=== PATIENT | female | born 1995 | race Caucasian/White ===

== ENCOUNTER → 2017-08-23 | Outpatient (CLI) | payer BC, OTHER ==
[~2017-08-23] MED LIST: GLYBURIDE PO; IBUP800 PO; IRON150C PO; ORAL BIRTH CONTROL; Percocet 5-3251 EACH PO; Prilosec Otc20 MG PO; Verotin-Gr Cap1 EACH PO
[2017-08-24 09:07] LABS: Candida species (DNA Probe) Negative (NEGATIVE); G. vaginalis (DNA Probe) Negative (NEGATIVE); T. vaginalis (DNA Probe) Negative (NEGATIVE)
== END ==
LOC: LAB 16:56
PROVIDERS: Obstetrics & Gynecology
DX: A59.9 Trichomoniasis, unspecified (principal)
CPT/HCPCS: 87480; 87510; 87660

== ENCOUNTER 2017-08-28 04:16 | Emergency (ER) | payer BC, OTHER ==
[~2017-08-28] VITALS: Ht 162.6 cm; Wt 130.2 kg
[~2017-08-28 04:16] MED LIST changes: -GLYBURIDE PO; -IBUP800 PO; -IRON150C PO; -ORAL BIRTH CONTROL; -Percocet 5-3251 EACH PO
[2017-08-28] MEDS ORDERED: GLYBURIDE PO (04:44)
[2017-08-28] MEDS ORDERED: IRON150C PO (04:45)
[2017-08-28 05:00] LABS: Source, Urine Clean Catch
[2017-08-28 05:28] LABS: Influenza A Negative (NEGATIVE); Influenza B Negative (NEGATIVE)
[2017-08-28 05:29] LABS: Appearance, Urine Hazy (Clear); Bilirubin, Urine Neg (Neg); Blood, Urine 1+ (Neg); Color, Urine Yellow (P-Yellow); Glucose Qualitative, Urine Neg (Neg); Ketones, Urine Neg (Neg); Leukocyte Esterase, Urine 1+ (Neg); Nitrite, Urine Neg (Neg); Protein, Urine Neg (Neg); Specific Gravity, Urine 1.015 (1.003-1.022); Urobilinogen, Urine NORM (Normal)
[2017-08-28 05:30] LABS: Bacteria Many /hpf; Red Blood Cells, Urine 0-2 /hpf (0-2); Squamous Epithelial Cells Many /hpf (Few); White Blood Cells, Urine 0-2 /hpf (0-5)
== END 2017-08-28 05:05 | disposition home or self-care (01) ==
LOC: ER 04:16
PROVIDERS: Emergency Medicine
DX: J06.9 Acute upper respiratory infection, unspecified (principal); J45.909 Unspecified asthma, uncomplicated; Z88.0 Allergy status to penicillin; Z88.8 Allergy status to other drugs, medicaments and biological substances; Z79.899 Other long term (current) drug therapy
CPT/HCPCS: 81001; 87804; 99283

== ENCOUNTER → 2017-09-07 | Outpatient (CLI) | payer BC, OTHER ==
[~2017-09-07] MED LIST changes: +GLYBURIDE PO; +IBUP800 PO; +IRON150C PO; +ORAL BIRTH CONTROL; +Percocet 5-3251 EACH PO
== END | disposition home or self-care (01) ==
LOC: LAB 15:19
DX: R30.0 Dysuria (principal)
CPT/HCPCS: 87086

== ENCOUNTER → 2017-09-20 | Outpatient (CLI) | payer BC, OTHER | END | disposition home or self-care (01) | LOC: LAB 16:36 | DX: Z34.03 Encounter for supervision of normal first pregnancy, third trimester (principal); Z3A.35 35 weeks gestation of pregnancy | CPT/HCPCS: 87081; 87653 ==

== ENCOUNTER 2017-10-18 05:58 | Inpatient (IN) | payer BC, OTHER ==
[~2017-10-18] VITALS: Ht 162.6 cm; Wt 131.0 kg
[~2017-10-18 05:58] MED LIST changes: -IBUP800 PO; -ORAL BIRTH CONTROL; -Percocet 5-3251 EACH PO
[2017-10-18 06:33] LABS: BASOPHILS ABSOLUTE AUTO 0.04 K/mm3 (0.00-0.23); BASOPHILS PERCENT AUTO 0 % (0-2); EOSINOPHILS ABSOLUTE AUTO 0.13 K/mm3 (0.00-0.68); EOSINOPHILS PERCENT AUTO 1 % (0-6); Hematocrit 37.6 % (33.0-51.0); Hemoglobin 12.2 g/dL (11.5-16.0); IMMATURE GRAN ABSOLUTE AUTO 0.11 K/mm3 (0.00-0.10); IMMATURE GRAN PERCENT AUTO 1 % (0-1); LYMPHOCYTES ABSOLUTE AUTO 3.89 K/mm3 (0.84-5.20); LYMPHOCYTES PERCENT AUTO 36 % (21-46); MONOCYTES ABSOLUTE AUTO 0.73 K/mm3 (0.16-1.47); MONOCYTES PERCENT AUTO 7 % (4-13); Mean Corpuscular HGB 26.5 pg (26.0-34.0); Mean Corpuscular HGB Conc 32.4 g/dL (31.5-36.5); Mean Corpuscular Volume 82 fL (80-100); Mean Platelet Volume 11.4 fL (9.1-12.4); NEUTROPHILS ABSOLUTE AUTO 5.83 K/mm3 (1.96-9.15); NEUTROPHILS PERCENT AUTO 54 % (41-73); Platelet Count 287 K/mm3 (150-400); RDW Coefficient Variation 14.7 % (11.7-14.2); RDW Standard Deviation 43.3 fL (35.1-46.3); White Blood Cell Count 10.73 K/mm3 (4.00-11.30)
[2017-10-19 14:34] LABS: PCO2 Cord - Arterial 60.9 mmHg (40-50); pH Cord - Arterial 7.25 (7.28-7.35)
[2017-10-19 14:35] LABS: PCO2 Cord - Venous 49.3 mmHg (40-50); PO2 Cord - Venous 17.4 mmHg (28-32)
[2017-10-20 05:59] LABS: Hematocrit 29.3 % (33.0-51.0); Hemoglobin 9.6 g/dL (11.5-16.0); Mean Corpuscular HGB 27.2 pg (26.0-34.0); Mean Corpuscular HGB Conc 32.8 g/dL (31.5-36.5); Mean Corpuscular Volume 83 fL (80-100); Mean Platelet Volume 10.7 fL (9.1-12.4); Platelet Count 184 K/mm3 (150-400); RDW Coefficient Variation 14.8 % (11.7-14.2); RDW Standard Deviation 44.2 fL (35.1-46.3); Red Blood Cell Count 3.53 M/mm3 (3.80-5.20); White Blood Cell Count 11.18 K/mm3 (4.00-11.30)
[2017-10-21] MEDS ORDERED: IBUP800 PO (10:25)
[2017-10-21] MEDS ORDERED: Percocet 5-3251 EACH PO (10:25)
== END 2017-10-21 12:30 | disposition home or self-care (01) | DRG 775 ==
LOC: BC 05:58
PROVIDERS: Obstetrics & Gynecology
PROC: 3E0P7VZ Introduction of Hormone into Female Reproductive, Via Natural or Artificial Opening (ICD-10-PCS; 2017-10-19)
PROC: 3E0234Z Introduction of Serum, Toxoid and Vaccine into Muscle, Percutaneous Approach (ICD-10-PCS; 2017-10-19)
PROC: 10E0XZZ Delivery of Products of Conception, External Approach (ICD-10-PCS; principal; 2017-10-19 13:20)
DX: O24.425 Gestational diabetes mellitus in childbirth, controlled by oral hypoglycemic drugs (principal); O77.0 Labor and delivery complicated by meconium in amniotic fluid; Z68.42 Body mass index [BMI] 45.0-49.9, adult; E66.01 Morbid (severe) obesity due to excess calories; O99.214 Obesity complicating childbirth; O62.0 Primary inadequate contractions; Z37.0 Single live birth; Z3A.39 39 weeks gestation of pregnancy; Z23 Encounter for immunization; Z88.0 Allergy status to penicillin; Z88.8 Allergy status to other drugs, medicaments and biological substances
CPT/HCPCS: 36415; 51702; 82803; 82947; 85025; 85027; 90471; 90707; J1580; J1885; J2590; J2765; J3010; J7120; Q2038

== ENCOUNTER 2017-12-02 21:09 | Emergency (ER) | payer OTHER, BC ==
[~2017-12-02] VITALS: Ht 162.6 cm; Wt 117.9 kg
[~2017-12-02 21:09] MED LIST changes: +IBUP800 PO; +Percocet 5-3251 EACH PO
[2017-12-02] MEDS ORDERED: ORAL BIRTH CONTROL (21:20)
== END 2017-12-02 22:56 | disposition home or self-care (01) ==
LOC: ER 21:09
DX: M25.512 Pain in left shoulder (principal); J45.909 Unspecified asthma, uncomplicated; Z88.0 Allergy status to penicillin; Z88.8 Allergy status to other drugs, medicaments and biological substances; Z87.891 Personal history of nicotine dependence; V43.52XA Car driver injured in collision with other type car in traffic accident, initial encounter
CPT/HCPCS: 73030; 99283

== ENCOUNTER 2019-07-27 20:26 | Emergency (ER) | payer BC, OTHER ==
[~2019-07-27] VITALS: Ht 162.6 cm; Wt 136.1 kg
[~2019-07-27 20:26] MED LIST changes: +ORAL BIRTH CONTROL
[2019-07-27 21:52] LABS: Influenza A Negative (NEGATIVE); Influenza B Negative (NEGATIVE)
[2019-07-27] MEDS ORDERED: Prednisone20 MG PO (23:10)
[2019-07-27] MEDS ORDERED: ALBU90OI INH (23:10)
[2019-07-27] MEDS ORDERED: CODEINE-GUAIFE120 ML PO (23:10)
== END 2019-07-27 23:34 | disposition home or self-care (01) ==
LOC: ER 20:26
PROVIDERS: Physician Assistant
DX: J40 Bronchitis, not specified as acute or chronic (principal); Z88.0 Allergy status to penicillin; Z88.1 Allergy status to other antibiotic agents; Z87.891 Personal history of nicotine dependence
CPT/HCPCS: 71046; 87804; 94640; 99284-25; J1100

== ENCOUNTER 2020-04-02 23:26 | Emergency (ER) | payer BC, OTHER ==
[~2020-04-02] VITALS: Ht 162.6 cm; Wt 127.0 kg
[~2020-04-02 23:26] MED LIST changes: +ALBU90OI INH; +CODEINE-GUAIFE120 ML PO; +Prednisone20 MG PO
[2020-04-02] MEDS ORDERED: Lexapro5 MG PO (23:53)
[2020-04-02] MEDS ORDERED: Naprosyn500 MG PO (23:53)
[2020-04-03 00:19] LABS: Source, Urine Clean Catch
[2020-04-03 00:22] LABS: BASOPHILS ABSOLUTE AUTO 0.05 K/mm3 (0.00-0.23); BASOPHILS PERCENT AUTO 1 % (0-2); Bilirubin, Urine Neg (Neg); Blood, Urine Neg (Neg); EOSINOPHILS ABSOLUTE AUTO 0.23 K/mm3 (0.00-0.68); EOSINOPHILS PERCENT AUTO 2 % (0-6); Glucose Qualitative, Urine Neg (Neg); Hematocrit 39.1 % (33.0-51.0); Hemoglobin 12.8 g/dL (11.5-16.0); IMMATURE GRAN ABSOLUTE AUTO 0.04 K/mm3 (0.00-0.10); IMMATURE GRAN PERCENT AUTO 0 % (0-1); Ketones, Urine 1+ (Neg); LYMPHOCYTES ABSOLUTE AUTO 3.44 K/mm3 (0.84-5.20); LYMPHOCYTES PERCENT AUTO 35 % (21-46); Leukocyte Esterase, Urine 1+ (Neg); MONOCYTES ABSOLUTE AUTO 0.77 K/mm3 (0.16-1.47); MONOCYTES PERCENT AUTO 8 % (4-13); Mean Corpuscular HGB Conc 32.7 g/dL (31.5-36.5); Mean Corpuscular Volume 89 fL (80-100); Mean Platelet Volume 9.7 fL (9.1-12.4); NEUTROPHILS ABSOLUTE AUTO 5.22 K/mm3 (1.96-9.15); NEUTROPHILS PERCENT AUTO 54 % (41-73); Nitrite, Urine Neg (Neg); Platelet Count 341 K/mm3 (150-400); Protein, Urine 1+ (Neg); RDW Coefficient Variation 12.4 % (11.7-14.2); RDW Standard Deviation 40.3 fL (35.1-46.3); Red Blood Cell Count 4.41 M/mm3 (3.80-5.20); Specific Gravity, Urine 1.025 (1.003-1.022); Urobilinogen, Urine 1+ (Normal); White Blood Cell Count 9.75 K/mm3 (4.00-11.30)
[2020-04-03 00:34] LABS: Appearance, Urine Hazy (Clear); Color, Urine Yellow (P-Yellow)
[2020-04-03 00:37] LABS: Bacteria Mod /hpf; Squamous Epithelial Cells Few /hpf (Few)
[2020-04-03 00:38] LABS: Mucus Light (0-Heavy); Red Blood Cells, Urine Rare /hpf (0-2)
[2020-04-03 00:43] LABS: Alanine Aminotransfer (ALT/SGP 87 U/L (12-78); Albumin, Blood 3.9 g/dL (3.4-5.0); Albumin/Globulin Ratio 1.1 (0.8-1.8); Alk Phos 60 U/L (50-136); Anion Gap 4 mmol/L (6-16); Aspartate Aminotrans (AST/SGOT 39 U/L (12-37); Bilirubin, Total 0.3 mg/dL (0.1-1.0); Blood Urea Nitrogen 13 mg/dL (8-24); Bun/Creatinine Ratio 20.4 (12.0-20.0); CO2, Blood 26 mmol/L (21-32); Calcium, Blood 9.2 mg/dL (8.5-10.1); Chloride, Blood 112 mmol/L (98-108); Creatinine, Blood 0.64 mg/dL (0.40-1.00); Globulin, Blood 3.7 g/dL (2.2-4.0); Glomerular Filtration Rate >60 (60-); Glucose, Blood 112 mg/dL (70-99); Potassium, Blood 3.8 mmol/L (3.5-5.5); Sodium, Blood 142 mmol/L (136-145); Total Protein, Blood 7.6 g/dL (6.4-8.2)
== END 2020-04-03 02:05 | disposition home or self-care (01) ==
LOC: ER 23:26
PROVIDERS: Physician Assistant
DX: R11.2 Nausea with vomiting, unspecified (principal); Z88.0 Allergy status to penicillin; Z88.8 Allergy status to other drugs, medicaments and biological substances; Z79.899 Other long term (current) drug therapy; F17.290 Nicotine dependence, other tobacco product, uncomplicated
CPT/HCPCS: 36415; 80053; 81001; 81025; 83690; 85025; 87086; 96361; 96374; 99284; J2405; J7030

== ENCOUNTER 2020-04-22 15:04 | Emergency (ER) | payer BC, OTHER ==
[~2020-04-22] VITALS: Ht 162.6 cm; Wt 131.5 kg
[~2020-04-22 15:04] MED LIST changes: +Lexapro5 MG PO; +Naprosyn500 MG PO
[2020-04-22 16:23] LABS: BASOPHILS ABSOLUTE AUTO 0.06 K/mm3 (0.00-0.23); BASOPHILS PERCENT AUTO 1 % (0-2); EOSINOPHILS ABSOLUTE AUTO 0.25 K/mm3 (0.00-0.68); EOSINOPHILS PERCENT AUTO 2 % (0-6); Hematocrit 39.3 % (33.0-51.0); IMMATURE GRAN ABSOLUTE AUTO 0.05 K/mm3 (0.00-0.10); IMMATURE GRAN PERCENT AUTO 0 % (0-1); LYMPHOCYTES ABSOLUTE AUTO 5.13 K/mm3 (0.84-5.20); LYMPHOCYTES PERCENT AUTO 44 % (21-46); MONOCYTES PERCENT AUTO 8 % (4-13); Mean Corpuscular HGB 29.1 pg (26.0-34.0); Mean Corpuscular HGB Conc 33.1 g/dL (31.5-36.5); Mean Corpuscular Volume 88 fL (80-100); Mean Platelet Volume 9.8 fL (9.1-12.4); NEUTROPHILS ABSOLUTE AUTO 5.27 K/mm3 (1.96-9.15); NEUTROPHILS PERCENT AUTO 45 % (41-73); Platelet Count 329 K/mm3 (150-400); RDW Coefficient Variation 12.4 % (11.7-14.2); Red Blood Cell Count 4.46 M/mm3 (3.80-5.20); White Blood Cell Count 11.66 K/mm3 (4.00-11.30)
[2020-04-22 16:41] LABS: Alanine Aminotransfer (ALT/SGP 88 U/L (12-78); Albumin, Blood 3.5 g/dL (3.4-5.0); Albumin/Globulin Ratio 0.9 (0.8-1.8); Alk Phos 54 U/L (50-136); Anion Gap 7 mmol/L (6-16); Aspartate Aminotrans (AST/SGOT 44 U/L (12-37); Bilirubin, Total 0.5 mg/dL (0.1-1.0); Blood Urea Nitrogen 10 mg/dL (8-24); Bun/Creatinine Ratio 17.9 (12.0-20.0); CO2, Blood 25 mmol/L (21-32); Calcium, Blood 8.5 mg/dL (8.5-10.1); Chloride, Blood 107 mmol/L (98-108); Creatinine, Blood 0.56 mg/dL (0.40-1.00); Glomerular Filtration Rate >60 (60-); Glucose, Blood 92 mg/dL (70-99); Potassium, Blood 3.9 mmol/L (3.5-5.5); Sodium, Blood 139 mmol/L (136-145); Total Protein, Blood 7.5 g/dL (6.4-8.2); Troponin I <0.015 ng/mL (0.000-0.040)
[2020-04-22] MEDS ORDERED: Effexor Xr37.5 MG PO (16:43)
[2020-04-22] MEDS ORDERED: HYDROXYZINE PAM25 MG PO (16:43)
[2020-04-23] MEDS ORDERED: MECL12.5 PO (17:34)
== END 2020-04-22 18:29 | disposition home or self-care (01) ==
LOC: ER 15:04
PROVIDERS: Emergency Medicine
DX: R42 Dizziness and giddiness (principal); H53.8 Other visual disturbances; F17.220 Nicotine dependence, chewing tobacco, uncomplicated; Z88.0 Allergy status to penicillin; Z88.1 Allergy status to other antibiotic agents; Z79.899 Other long term (current) drug therapy
CPT/HCPCS: 36415; 71045; 80053; 84484; 85025; 93005; 93010; 96360; 99284-25; J7030

== ENCOUNTER 2020-10-02 12:32 | Emergency (ER) | payer BC, OTHER ==
[~2020-10-02] VITALS: Ht 162.6 cm; Wt 129.3 kg
[~2020-10-02 12:32] MED LIST changes: +Effexor Xr37.5 MG PO; +HYDROXYZINE PAM25 MG PO; +MECL12.5 PO
[2020-10-02] MEDS ORDERED: CEPH500 PO (14:07)
== END 2020-10-02 14:23 | disposition home or self-care (01) ==
LOC: ER 12:32
DX: J02.0 Streptococcal pharyngitis (principal); Z88.0 Allergy status to penicillin; Z88.1 Allergy status to other antibiotic agents; Z79.899 Other long term (current) drug therapy; Z87.891 Personal history of nicotine dependence
CPT/HCPCS: 81000; 81025; 87430; 99283

== ENCOUNTER 2020-10-04 07:33 | Emergency (ER) | payer BC, OTHER ==
[~2020-10-04] VITALS: Ht 162.6 cm; Wt 129.3 kg
[~2020-10-04 07:33] MED LIST changes: +CEPH500 PO
[2020-10-04] MEDS ORDERED: CODITUSSIN AC473 M1 PO (10:02)
== END 2020-10-04 10:17 | disposition home or self-care (01) ==
LOC: ER 07:33
DX: J02.0 Streptococcal pharyngitis (principal); J45.909 Unspecified asthma, uncomplicated; Z88.0 Allergy status to penicillin; Z88.1 Allergy status to other antibiotic agents; Z79.899 Other long term (current) drug therapy; Z87.891 Personal history of nicotine dependence
CPT/HCPCS: 71046; 94640; 99283-25; J1100

== ENCOUNTER → 2020-12-15 | Outpatient (CLI) | payer BC, OTHER ==
[~2020-12-15] MED LIST changes: +CODITUSSIN AC473 M1 PO
== END | disposition home or self-care (01) ==
LOC: LAB SHORT 09:11
DX: N92.5 Other specified irregular menstruation (principal)
CPT/HCPCS: 84702

== ENCOUNTER 2021-01-28 19:32 | Emergency (ER) | payer BC, OTHER ==
[~2021-01-28] VITALS: Ht 162.6 cm; Wt 128.8 kg
[2021-01-28 20:29] LABS: BASOPHILS ABSOLUTE AUTO 0.05 K/mm3 (0.00-0.23); BASOPHILS PERCENT AUTO 1 % (0-2); EOSINOPHILS ABSOLUTE AUTO 0.31 K/mm3 (0.00-0.68); EOSINOPHILS PERCENT AUTO 3 % (0-6); Hematocrit 42.2 % (33.0-51.0); IMMATURE GRAN ABSOLUTE AUTO 0.06 K/mm3 (0.00-0.10); IMMATURE GRAN PERCENT AUTO 1 % (0-1); LYMPHOCYTES ABSOLUTE AUTO 1.75 K/mm3 (0.84-5.20); LYMPHOCYTES PERCENT AUTO 18 % (21-46); MONOCYTES ABSOLUTE AUTO 0.64 K/mm3 (0.16-1.47); MONOCYTES PERCENT AUTO 7 % (4-13); Mean Corpuscular HGB 29.5 pg (26.0-34.0); Mean Corpuscular HGB Conc 33.2 g/dL (31.5-36.5); Mean Corpuscular Volume 89 fL (80-100); Mean Platelet Volume 9.9 fL (9.1-12.4); NEUTROPHILS ABSOLUTE AUTO 6.75 K/mm3 (1.96-9.15); NEUTROPHILS PERCENT AUTO 71 % (41-73); Platelet Count 323 K/mm3 (150-400); RDW Standard Deviation 42.5 fL (35.1-46.3); Red Blood Cell Count 4.75 M/mm3 (3.80-5.20); White Blood Cell Count 9.56 K/mm3 (4.00-11.30)
[2021-01-28 20:47] LABS: Alanine Aminotransfer (ALT/SGP 62 U/L (12-78); Albumin, Blood 3.4 g/dL (3.4-5.0); Albumin/Globulin Ratio 0.9 (0.8-1.8); Alk Phos 47 U/L (50-136); Anion Gap 7 mmol/L (6-16); Aspartate Aminotrans (AST/SGOT 17 U/L (12-37); Bilirubin, Total 0.7 mg/dL (0.1-1.0); Blood Urea Nitrogen 10 mg/dL (8-24); Bun/Creatinine Ratio 14.1 (12.0-20.0); CO2, Blood 24 mmol/L (21-32); Calcium, Blood 7.4 mg/dL (8.5-10.1); Chloride, Blood 105 mmol/L (98-108); Creatinine, Blood 0.71 mg/dL (0.40-1.00); Globulin, Blood 3.7 g/dL (2.2-4.0); Glomerular Filtration Rate >60 (60-); Glucose, Blood 120 mg/dL (70-99); Potassium, Blood 3.4 mmol/L (3.5-5.5); Sodium, Blood 136 mmol/L (136-145); Total Protein, Blood 7.1 g/dL (6.4-8.2)
[2021-01-28] MEDS ORDERED: PROC5 PO (23:06)
[2021-01-28] MEDS ORDERED: DICY20 PO (23:06)
[2021-01-28] MEDS ORDERED: LOPE2C PO (23:06)
== END 2021-01-28 23:13 | disposition home or self-care (01) ==
LOC: ER 19:32
PROVIDERS: Physician Assistant
DX: K52.9 Noninfective gastroenteritis and colitis, unspecified (principal); J45.909 Unspecified asthma, uncomplicated; Z88.0 Allergy status to penicillin; Z88.1 Allergy status to other antibiotic agents; Z79.899 Other long term (current) drug therapy
CPT/HCPCS: 36415; 76705; 80053; 83605; 83690; 84703; 85025; 96374; 96375; 99284-25; J0780; J3010; J7030

== ENCOUNTER 2021-03-24 19:14 | Emergency (ER) | payer BC, OTHER ==
[~2021-03-24] VITALS: Ht 162.6 cm; Wt 129.3 kg
[~2021-03-24 19:14] MED LIST changes: +DICY20 PO; +LOPE2C PO; +PROC5 PO
[2021-04-27] MEDS ORDERED: IBUP800 PO (10:54)
== END 2021-03-24 20:48 | disposition home or self-care (01) ==
LOC: ER 19:14
DX: J02.9 Acute pharyngitis, unspecified (principal); Z20.822 Contact with and (suspected) exposure to COVID-19; Z87.891 Personal history of nicotine dependence
CPT/HCPCS: 87081; 87430; 99283

== ENCOUNTER 2021-04-20 21:43 | Emergency (ER) | payer BC, OTHER ==
[~2021-04-20] VITALS: Ht 162.6 cm; Wt 127.0 kg
[2021-04-20 22:48] LABS: BASOPHILS ABSOLUTE AUTO 0.07 K/mm3 (0.00-0.23); BASOPHILS PERCENT AUTO 1 % (0-2); EOSINOPHILS ABSOLUTE AUTO 0.44 K/mm3 (0.00-0.68); EOSINOPHILS PERCENT AUTO 4 % (0-6); Hematocrit 35.5 % (33.0-51.0); Hemoglobin 12.1 g/dL (11.5-16.0); Mean Corpuscular HGB 29.8 pg (26.0-34.0); Mean Corpuscular HGB Conc 34.1 g/dL (31.5-36.5); Mean Corpuscular Volume 87 fL (80-100); Platelet Count 302 K/mm3 (150-400); RDW Coefficient Variation 13.3 % (11.7-14.2); RDW Standard Deviation 42.7 fL (35.1-46.3); Red Blood Cell Count 4.06 M/mm3 (3.80-5.20); White Blood Cell Count 10.48 K/mm3 (4.00-11.30)
[2021-04-20 22:50] LABS: IMMATURE GRAN ABSOLUTE AUTO 0.06 K/mm3 (0.00-0.10); IMMATURE GRAN PERCENT AUTO 1 % (0-1); LYMPHOCYTES ABSOLUTE AUTO 4.25 K/mm3 (0.84-5.20); LYMPHOCYTES PERCENT AUTO 41 % (21-46); MONOCYTES ABSOLUTE AUTO 0.61 K/mm3 (0.16-1.47); MONOCYTES PERCENT AUTO 6 % (4-13); NEUTROPHILS ABSOLUTE AUTO 5.05 K/mm3 (1.96-9.15); NEUTROPHILS PERCENT AUTO 48 % (41-73)
[2021-04-20 23:15] LABS: Alanine Aminotransfer (ALT/SGP 76 U/L (12-78); Albumin, Blood 3.3 g/dL (3.4-5.0); Albumin/Globulin Ratio 0.9 (0.8-1.8); Alk Phos 68 U/L (50-136); Anion Gap 6 mmol/L (6-16); Aspartate Aminotrans (AST/SGOT 34 U/L (12-37); Bilirubin, Total 0.3 mg/dL (0.1-1.0); Blood Urea Nitrogen 11 mg/dL (8-24); Bun/Creatinine Ratio 17.3 (12.0-20.0); CO2, Blood 26 mmol/L (21-32); Calcium, Blood 8.4 mg/dL (8.5-10.1); Chloride, Blood 109 mmol/L (98-108); Creatinine, Blood 0.64 mg/dL (0.40-1.00); Globulin, Blood 3.7 g/dL (2.2-4.0); Glomerular Filtration Rate >60 (60-); Glucose, Blood 96 mg/dL (70-99); Potassium, Blood 3.8 mmol/L (3.5-5.5); Sodium, Blood 141 mmol/L (136-145)
[2021-04-20 23:26] LABS: SARS-Cov-2 (COVID-19) PCR, MMC NEGATIVE (NEGATIVE)
[2021-04-21] MEDS ORDERED: ALBU90OI INH (00:14)
[2021-04-21] MEDS ORDERED: PRED20 PO (00:14)
[2021-04-27] MEDS ORDERED: IBUP800 PO (10:54)
== END 2021-04-21 00:30 | disposition home or self-care (01) ==
LOC: ER 21:43
PROVIDERS: Physician Assistant
DX: B34.9 Viral infection, unspecified (principal); Z20.822 Contact with and (suspected) exposure to COVID-19; Z88.0 Allergy status to penicillin; Z88.8 Allergy status to other drugs, medicaments and biological substances; Z87.891 Personal history of nicotine dependence
CPT/HCPCS: 36415; 71046; 80053; 85025; 93005; 93010; 99284-25; A9270; J7512; U0004

== ENCOUNTER 2021-05-31 21:33 | Emergency (ER) | payer BC, OTHER ==
[~2021-05-31] VITALS: Ht 162.6 cm; Wt 127.0 kg
[~2021-05-31 21:33] MED LIST changes: +PRED20 PO
[2021-05-31] MEDS ORDERED: IBUP600 PO (23:35)
[2021-05-31] MEDS ORDERED: CYCL10 PO (23:35)
[2021-06-01] MEDS ORDERED: HYDR1TAB94 PO (21:06)
== END 2021-06-01 00:28 | disposition home or self-care (01) ==
LOC: ER 21:33
DX: M79.10 Myalgia, unspecified site (principal); M54.50 Low back pain, unspecified; M54.2 Cervicalgia; M25.511 Pain in right shoulder; M25.512 Pain in left shoulder; J45.909 Unspecified asthma, uncomplicated; Z88.0 Allergy status to penicillin; Z88.8 Allergy status to other drugs, medicaments and biological substances; V49.9XXA Car occupant (driver) (passenger) injured in unspecified traffic accident, initial encounter
CPT/HCPCS: 71046; 72170; 96372; 99284-25; A9270; J1885

== ENCOUNTER 2021-06-01 16:54 | Emergency (ER) | payer OTHER, BC ==
[~2021-06-01] VITALS: Ht 162.6 cm; Wt 127.0 kg
[~2021-06-01 16:54] MED LIST changes: +CYCL10 PO; +IBUP600 PO
[2021-06-01] MEDS ORDERED: HYDR1TAB94 PO (21:06)
== END 2021-06-01 21:31 | disposition home or self-care (01) ==
LOC: ER 16:54
DX: M54.16 Radiculopathy, lumbar region (principal); J45.909 Unspecified asthma, uncomplicated; Z88.0 Allergy status to penicillin; Z88.8 Allergy status to other drugs, medicaments and biological substances; Z79.899 Other long term (current) drug therapy; V89.2XXD Person injured in unspecified motor-vehicle accident, traffic, subsequent encounter
CPT/HCPCS: 72100; 99283-25; A9270

== ENCOUNTER 2021-12-02 02:32 | Emergency (ER) | payer BC, OTHER ==
[~2021-12-02] VITALS: Ht 162.6 cm; Wt 131.5 kg
[~2021-12-02 02:32] MED LIST changes: +HYDR1TAB94 PO
[2021-12-02 03:10] LABS: BASOPHILS ABSOLUTE AUTO 0.05 K/mm3 (0.00-0.23); BASOPHILS PERCENT AUTO 0 % (0-2); EOSINOPHILS ABSOLUTE AUTO 0.21 K/mm3 (0.00-0.68); EOSINOPHILS PERCENT AUTO 2 % (0-6); Hematocrit 41.7 % (33.0-51.0); Hemoglobin 13.9 g/dL (11.5-16.0); IMMATURE GRAN ABSOLUTE AUTO 0.08 K/mm3 (0.00-0.10); IMMATURE GRAN PERCENT AUTO 1 % (0-1); LYMPHOCYTES ABSOLUTE AUTO 1.59 K/mm3 (0.84-5.20); LYMPHOCYTES PERCENT AUTO 11 % (21-46); MONOCYTES ABSOLUTE AUTO 0.86 K/mm3 (0.16-1.47); MONOCYTES PERCENT AUTO 6 % (4-13); Mean Corpuscular HGB 29.6 pg (26.0-34.0); Mean Corpuscular HGB Conc 33.3 g/dL (31.5-36.5); Mean Corpuscular Volume 89 fL (80-100); Mean Platelet Volume 9.9 fL (9.1-12.4); NEUTROPHILS ABSOLUTE AUTO 11.42 K/mm3 (1.96-9.15); NEUTROPHILS PERCENT AUTO 80 % (41-73); Platelet Count 339 K/mm3 (150-400); RDW Coefficient Variation 12.4 % (11.7-14.2); RDW Standard Deviation 40.9 fL (35.1-46.3); White Blood Cell Count 14.21 K/mm3 (4.00-11.30)
[2021-12-02 03:27] LABS: Alanine Aminotransfer (ALT/SGP 69 U/L (12-78); Albumin, Blood 3.7 g/dL (3.4-5.0); Alk Phos 48 U/L (50-136); Anion Gap 7 mmol/L (6-16); Aspartate Aminotrans (AST/SGOT 22 U/L (12-37); Bilirubin, Total 0.9 mg/dL (0.1-1.0); Blood Urea Nitrogen 10 mg/dL (8-24); Bun/Creatinine Ratio 16.3 (12.0-20.0); CO2, Blood 24 mmol/L (21-32); Calcium, Blood 8.2 mg/dL (8.5-10.1); Chloride, Blood 105 mmol/L (98-108); Creatinine, Blood 0.61 mg/dL (0.40-1.00); Globulin, Blood 3.8 g/dL (2.2-4.0); Glomerular Filtration Rate >60 (60-); Glucose, Blood 162 mg/dL (70-99); Potassium, Blood 3.6 mmol/L (3.5-5.5); Sodium, Blood 136 mmol/L (136-145); Total Protein, Blood 7.5 g/dL (6.4-8.2)
[2021-12-02] MEDS ORDERED: DICY20 PO (04:40)
[2021-12-02] MEDS ORDERED: Ondansetron Odt8 MG MM (04:40)
== END 2021-12-02 04:50 | disposition home or self-care (01) ==
LOC: ER 02:32
PROVIDERS: Emergency Medicine
DX: K80.20 Calculus of gallbladder without cholecystitis without obstruction (principal); Z88.0 Allergy status to penicillin; Z88.8 Allergy status to other drugs, medicaments and biological substances; Z79.899 Other long term (current) drug therapy; J45.909 Unspecified asthma, uncomplicated
CPT/HCPCS: 76705; 80053; 83605; 83690; 85025; 96372; 96374; 96375; 99284-25; J0500; J1885; J2405; J7030

== ENCOUNTER → 2022-02-12 | Outpatient (CLI) | payer BC, OTHER ==
[~2022-02-12] MED LIST changes: +Ondansetron Odt8 MG MM
== END | disposition home or self-care (01) ==
LOC: LAB 10:47 → LAB SHORT 10:47
DX: J03.90 Acute tonsillitis, unspecified (principal)
CPT/HCPCS: 87081

== ENCOUNTER 2022-04-17 14:24 | Emergency (ER) | payer BC, OTHER ==
[~2022-04-17] VITALS: Ht 162.6 cm; Wt 122.5 kg
[2022-04-17 16:11] LABS: BASOPHILS ABSOLUTE AUTO 0.04 K/mm3 (0.00-0.23); BASOPHILS PERCENT AUTO 1 % (0-2); EOSINOPHILS ABSOLUTE AUTO 0.38 K/mm3 (0.00-0.68); EOSINOPHILS PERCENT AUTO 4 % (0-6); Hematocrit 33.2 % (33.0-51.0); Hemoglobin 11.4 g/dL (11.5-16.0); IMMATURE GRAN ABSOLUTE AUTO 0.06 K/mm3 (0.00-0.10); IMMATURE GRAN PERCENT AUTO 1 % (0-1); LYMPHOCYTES PERCENT AUTO 36 % (21-46); MONOCYTES ABSOLUTE AUTO 0.49 K/mm3 (0.16-1.47); MONOCYTES PERCENT AUTO 6 % (4-13); Mean Corpuscular HGB 29.8 pg (26.0-34.0); Mean Corpuscular HGB Conc 34.3 g/dL (31.5-36.5); Mean Corpuscular Volume 87 fL (80-100); Mean Platelet Volume 10.3 fL (9.1-12.4); NEUTROPHILS ABSOLUTE AUTO 4.53 K/mm3 (1.96-9.15); NEUTROPHILS PERCENT AUTO 53 % (41-73); Platelet Count 232 K/mm3 (150-400); RDW Coefficient Variation 12.8 % (11.7-14.2); RDW Standard Deviation 40.2 fL (35.1-46.3); Red Blood Cell Count 3.83 M/mm3 (3.80-5.20)
[2022-04-17 16:58] LABS: Albumin/Globulin Ratio 0.8 (0.8-1.8); Bilirubin, Total 0.4 mg/dL (0.1-1.0); Bun/Creatinine Ratio 12.4 (12.0-20.0); Calcium, Blood 9.2 mg/dL (8.5-10.1); Creatinine, Blood 0.4 mg/dL (0.40-1.00); Globulin, Blood 3.9 g/dL (2.2-4.0); Potassium, Blood 3.5 mmol/L (3.5-5.5); Total Protein, Blood 6.9 g/dL (6.4-8.2)
== END 2022-04-17 19:12 | disposition home or self-care (01) ==
LOC: ER 14:24
PROVIDERS: Physician Assistant
DX: O99.891 Other specified diseases and conditions complicating pregnancy (principal); R10.30 Lower abdominal pain, unspecified; O13.2 Gestational [pregnancy-induced] hypertension without significant proteinuria, second trimester; O99.512 Diseases of the respiratory system complicating pregnancy, second trimester; J45.909 Unspecified asthma, uncomplicated; O34.219 Maternal care for unspecified type scar from previous cesarean delivery; Z3A.18 18 weeks gestation of pregnancy; Z79.899 Other long term (current) drug therapy
CPT/HCPCS: 36415; 76816; 80053; 84702; 85025

== ENCOUNTER 2022-07-26 21:46 | Inpatient (IN) | payer BC, OTHER ==
[~2022-07-26] VITALS: Ht 162.6 cm; Wt 117.2 kg
[~2022-07-26 21:46] MED LIST changes: +FAMO20 PO; +MONUROL3 GM PO; +PYRI100 PO; +UNISOM SLEEPMIN25 MG PO; +VITB2
[2022-07-27 01:23] LABS: BASOPHILS ABSOLUTE AUTO 0.03 K/mm3 (0.00-0.23); BASOPHILS PERCENT AUTO 0 % (0-2); EOSINOPHILS ABSOLUTE AUTO 0.07 K/mm3 (0.00-0.68); EOSINOPHILS PERCENT AUTO 1 % (0-6); Hematocrit 30.4 % (33.0-51.0); IMMATURE GRAN ABSOLUTE AUTO 0.25 K/mm3 (0.00-0.10); IMMATURE GRAN PERCENT AUTO 4 % (0-1); LYMPHOCYTES ABSOLUTE AUTO 3.04 K/mm3 (0.84-5.20); LYMPHOCYTES PERCENT AUTO 43 % (21-46); MONOCYTES ABSOLUTE AUTO 0.65 K/mm3 (0.16-1.47); MONOCYTES PERCENT AUTO 9 % (4-13); Mean Corpuscular HGB Conc 32.9 g/dL (31.5-36.5); Mean Corpuscular Volume 85 fL (80-100); Mean Platelet Volume 10.6 fL (9.1-12.4); NEUTROPHILS ABSOLUTE AUTO 3.05 K/mm3 (1.96-9.15); NEUTROPHILS PERCENT AUTO 43 % (41-73); Platelet Count 249 K/mm3 (150-400); RDW Standard Deviation 43.4 fL (35.1-46.3); Red Blood Cell Count 3.57 M/mm3 (3.80-5.20); White Blood Cell Count 7.09 K/mm3 (4.00-11.30)
[2022-07-27 01:43] LABS: Albumin, Blood 2.4 g/dL (3.4-5.0); Albumin/Globulin Ratio 0.6 (0.8-1.8); Bilirubin, Total 0.3 mg/dL (0.1-1.0); Bun/Creatinine Ratio 21.2 (12.0-20.0); Calcium, Blood 8.7 mg/dL (8.5-10.1); Creatinine, Blood 0.38 mg/dL (0.40-1.00); Globulin, Blood 3.9 g/dL (2.2-4.0); Potassium, Blood 3.4 mmol/L (3.5-5.5); Total Protein, Blood 6.3 g/dL (6.4-8.2)
[2022-07-27 02:29] LABS: Influenza B, PCR NEGATIVE (NEGATIVE); Resp Syncytial Virus, PCR NEGATIVE (NEGATIVE); SARS-Cov-2 (COVID-19) PCR, MMC NEGATIVE (NEGATIVE)
[2022-07-27 02:31] LABS: Influenza A, PCR POSITIVE (NEGATIVE)
--- NOTE | 2022-07-27 14:21 | NUR ---
Report called to ML Hilario on medical floor. Will transport soon
--- NOTE | 2022-07-27 20:26 | NUR ---
SHIFT SUMMARY- PT ALERT AND ORIENTED INDEPENDENT IN THE ROOM. SHE ARRIVED FROM L&D ON 3L VIA NC AND WAS INCREASED BY RT WHEN SATS WERE NOTED TO BE LESS THAN 95%. PT IS 32 WEEKS GESTATION AND IS HAVING FHT MONITORING BEING DONE Q8. SHE IS CURRENTLY ON 6L VIA GERMAIN FLOW DURING BEDSIDE REPORT SHE WAS NOTED TO BE DROPPING DOWN TO 92-93 RANGE, WAS INCREASED TO 7L VIA HIGH FLOW, RT WAS INFORMED AND CAME TO BRING HER A Tx. PT RECIEVED 2G IV MAG AND 40MEQ OF IV POTASSIUM IN L&D THIS MORNING. DR PATEL IS THE HOSPITALIST TAKING CARE OF HER TODAY AND SHE IS AWARE. PASSED THE PHONE NUMBER FOR THE OB DOCTOR TO THE NIGHT RN. AT THE TIME OF BEDSIDE REPORT THE PT WAS IN BED, CALL LIGHT IN REACH NO S&S OF DISTRESS.
[2022-07-28 06:40] LABS: Hematocrit 32.1 % (33.0-51.0); Hemoglobin 10.5 g/dL (11.5-16.0); Mean Corpuscular HGB 28.1 pg (26.0-34.0); Mean Corpuscular HGB Conc 32.7 g/dL (31.5-36.5); Mean Corpuscular Volume 86 fL (80-100); Mean Platelet Volume 10.4 fL (9.1-12.4); Platelet Count 252 K/mm3 (150-400); RDW Standard Deviation 43.5 fL (35.1-46.3); Red Blood Cell Count 3.74 M/mm3 (3.80-5.20); White Blood Cell Count 6.32 K/mm3 (4.00-11.30)
[2022-07-28 07:17] LABS: Albumin, Blood 2.5 g/dL (3.4-5.0); Anion Gap 10 mmol/L (6-16); Blood Urea Nitrogen 6 mg/dL (8-24); Bun/Creatinine Ratio 16.1 (12.0-20.0); CO2, Blood 24 mmol/L (21-32); Chloride, Blood 104 mmol/L (98-108); Creatinine, Blood 0.37 mg/dL (0.40-1.00); Glomerular Filtration Rate 143 (60-); Glucose, Blood 130 mg/dL (70-99); Magnesium, Blood 2.1 mg/dL (1.6-2.4); Phosphorus, Blood 4.5 mg/dL (2.5-4.9); Potassium, Blood 4.4 mmol/L (3.5-5.5); Sodium, Blood 138 mmol/L (136-145)
[2022-07-28 08:26] LABS: BAND PERCENT MAN 2 % (0-8); BASOPHILS PERCENT MAN 0 % (0-2); EOSINOPHILS PERCENT MAN 0 % (0-6); LYMPHOCYTES ABSOLUTE MAN 1.83 K/mm3 (0.84-5.20); LYMPHOCYTES PERCENT MAN 29 % (21-46); MONOCYTES ABSOLUTE MAN 0.12 K/mm3 (0.16-1.47); MONOCYTES PERCENT MAN 2 % (4-13); MYELOCYTE ABSOLUTE MAN 0.12 K/mm3 (0.00-0.00); MYELOCYTE PERCENT MAN 2 % (0-0); NEUTROPHILS ABSOLUTE MAN 4.23 K/mm3 (1.96-9.15); SEG NEUTROPHILS PERCENT MAN 65 % (41-73); TOTAL CELLS COUNTED 100
--- NOTE | 2022-07-28 19:45 | NUR ---
SUMMARY- PT A/O X4, INDEPENDANT IN THE ROOM. THIS AM STARTED ON 8L HIGH FLOW OXYGEN, REQUIRED INCREASE TO 10L ONCE AFTER ALBUTEROL TX- PT'S HR INCREASED FROM 88-90'S INTO 120'S, TACHYPNEA 36, SATS DROPPED TO 93%. ENC PT TO SLOW RESP AND BREATH INTO NOSE OUT MOUTH, LEFT PT ON 10L AND DEREASED TO 8 AFTER ABOUT AN HOUR SATS BACK TO 96%. THROUGHOUT THE DAY RESP IMPROVING AND PT ONLY REQUIRING 5L HIGH FLOW WITH SATS 96-97% CONT PULSE OX OUTSIDE OF ROOM. PT HAS DECRESED APPETITE RELATED TO NAUSEA, TOLERATING ABOUT 50% OF MEALS, MEDICATED WITH ZOFRAN ONCE AT [facility]NER [facility]. HAD TYLENOL THIS AM FOR GEN BODY ACHE WITH RELEIF. GIVEN ROBITUSSIN AND COUGH PEARLS THIS AM. PT TOOK SHOWER AND HAD LINEN CHANGED TODAY. SAT IN CHAIR AFTER BREADFAST AND THROUGH LUNCH. REPORTED TO NOC RN
--- NOTE | 2022-07-29 05:03 | NUR ---
SHIFT SUMMARY; NO ACUTE CHANGES OVERNIGHT. PT REMIANED STABLE OF 5L NC WITH O2 SATS GREATER THAN 95%. PT WAS ABLE TO GET SOME REST LAST NIGHT AND DENIES ANY SOB AT THIS TIME. THE PT ALSO DENIES ANY PAIN AT THIS TIME. PT REMAINS INDEPENDENT IN THE ROOM. PTS BREATHING IS UNLABORED AND THE PT REPORTS HAVING AN EASIER TIME BREATHING TODAY. CURRENTLY THE PT IS RESTING IN BED WITH THE BED IN THE LOWEST POSITION AND THE CALL LIGHT AT BEDSIDE. NST DONE BY FBP AROUND 0000.
[2022-07-29 05:09] LABS: BASOPHILS ABSOLUTE AUTO 0.05 K/mm3 (0.00-0.23); BASOPHILS PERCENT AUTO 1 % (0-2); EOSINOPHILS PERCENT AUTO 0 % (0-6); Hematocrit 32.3 % (33.0-51.0); Hemoglobin 10.7 g/dL (11.5-16.0); IMMATURE GRAN ABSOLUTE AUTO 0.39 K/mm3 (0.00-0.10); IMMATURE GRAN PERCENT AUTO 4 % (0-1); LYMPHOCYTES ABSOLUTE AUTO 2.91 K/mm3 (0.84-5.20); LYMPHOCYTES PERCENT AUTO 31 % (21-46); MONOCYTES ABSOLUTE AUTO 0.57 K/mm3 (0.16-1.47); MONOCYTES PERCENT AUTO 6 % (4-13); Mean Corpuscular HGB 28.1 pg (26.0-34.0); Mean Corpuscular HGB Conc 33.1 g/dL (31.5-36.5); Mean Corpuscular Volume 85 fL (80-100); Mean Platelet Volume 10.7 fL (9.1-12.4); NEUTROPHILS ABSOLUTE AUTO 5.62 K/mm3 (1.96-9.15); NEUTROPHILS PERCENT AUTO 59 % (41-73); Platelet Count 290 K/mm3 (150-400); RDW Coefficient Variation 13.8 % (11.7-14.2); RDW Standard Deviation 42.8 fL (35.1-46.3); Red Blood Cell Count 3.81 M/mm3 (3.80-5.20); White Blood Cell Count 9.54 K/mm3 (4.00-11.30)
[2022-07-29 05:36] LABS: Bun/Creatinine Ratio 24.6 (12.0-20.0); Calcium, Blood 9.1 mg/dL (8.5-10.1); Creatinine, Blood 0.41 mg/dL (0.40-1.00); Potassium, Blood 4.1 mmol/L (3.5-5.5)
--- NOTE | 2022-07-29 09:06 | NUR ---
NST APPROPRIATE FOR 32 WEEKS GESTATION
--- NOTE | 2022-07-29 18:08 | NUR ---
DAYSHIFT SUMMARY Patient titrated down to 3L O2, saturations stable at 95%. Nonproductive cough, lungs diminished at bases. OBGYN at bedisde this morning, FBP RN came & assessed heart rate. OB stated baby was doing well, the plan is to monitor the patient & try to wean off oxygen. Flexiril ordered from back pain & spasms. Flexiril & Zofran given this shfit, patient stated PRNs partially effective. CBGs WNL, no SSI given this shift. Will continue plan of care.
--- NOTE | 2022-07-30 05:26 | NUR ---
Rn summary: Patient is alert and oriented. Pt still having back and pelvic discomfort. Patient did get up and walk a loop around in hallway, slowly and did well. When Pt is sleeping her O2 needs increase and she has been on 4 liters to keep O2 sats at 95% or greater. When awake she did well with 2-3 liters. Pt medicated x1 with tylenol and muscle relaxer for back pain. Pt was able to rest well. Pt up to bathroom independantly, breath sounds with some exp courseness abnd wheezing. No cough noted. Call light in reach.
--- NOTE | 2022-07-30 13:13 | NUR ---
1000 REACTIVE NST FHR 145 UTERINE IRRITABILITY PRESENT. CONTRACTION X 1
--- NOTE | 2022-07-30 17:40 | NUR ---
DAYSHIFT SUMMARY Patient doing well, titrated from 4lpm to RA, patient continues to report SOB at times, but sats stable. Production cough, yellow-sputum. Reports severe back pain, PRN Tylenol & Flexiril given. Patient stable for discharge, plan is to given last dose of IV Solu-medrol & PO Tamiflu and then discharge home this evening. OBGYN has been at bedisde twice this shift to assess patient, plan is to f/u tuesday with MD. Reviewed discharge teaching, pt verbalized understanding.
== END 2022-07-30 18:32 | disposition home or self-care (01) | DRG 831 ==
LOC: OBS 21:46 → BC 21:46 → OBS 07-27 00:59 → BC 07-27 01:00 → MEDS 07-27 01:00 → BC 07-27 01:00 → MEDS 07-27 14:42
PROVIDERS: Internal Medicine; Obstetrics & Gynecology; ADMIT Advanced Practice Midwife
DX: O99.513 Diseases of the respiratory system complicating pregnancy, third trimester (principal); J96.01 Acute respiratory failure with hypoxia; J45.901 Unspecified asthma with (acute) exacerbation; O24.419 Gestational diabetes mellitus in pregnancy, unspecified control; O99.323 Drug use complicating pregnancy, third trimester; J10.1 Influenza due to other identified influenza virus with other respiratory manifestations; O99.891 Other specified diseases and conditions complicating pregnancy; M54.2 Cervicalgia; R51.9 Headache, unspecified; G89.29 Other chronic pain; O99.283 Endocrine, nutritional and metabolic diseases complicating pregnancy, third trimester; E87.6 Hypokalemia; R59.1 Generalized enlarged lymph nodes; F12.10 Cannabis abuse, uncomplicated; M54.50 Low back pain, unspecified; R11.0 Nausea; O36.8330 Maternal care for abnormalities of the fetal heart rate or rhythm, third trimester, not applicable or unspecified; Z60.9 Problem related to social environment, unspecified; J32.9 Chronic sinusitis, unspecified; Z20.822 Contact with and (suspected) exposure to COVID-19; Z79.899 Other long term (current) drug therapy; Z79.51 Long term (current) use of inhaled steroids; Z3A.32 32 weeks gestation of pregnancy; Z88.0 Allergy status to penicillin; Z88.1 Allergy status to other antibiotic agents; Z98.890 Other specified postprocedural states; Z87.891 Personal history of nicotine dependence; Z79.82 Long term (current) use of aspirin; Z79.2 Long term (current) use of antibiotics; Z79.52 Long term (current) use of systemic steroids
CPT/HCPCS: 0241U; 36415; 59025; 71045; 80048; 80053; 80069; 81003; 82947; 83735; 85025; 87070; 87205; 94640; 94664; 94760; 94762; 96365; 96366; 96375; 96376; A9270; G0378; J1815; J2405; J2765; J2930; J3475; J3480; J7050

== ENCOUNTER → 2022-08-02 | Outpatient (CLI) | payer BC, OTHER ==
[2022-08-02 15:37] LABS: Source, Urine Clean Catch
[2022-08-02 17:47] LABS: Appearance, Urine Cloudy (Clear); Bilirubin, Urine Neg (Neg); Blood, Urine Neg (Neg); Color, Urine Amber (P-Yellow); Glucose Qualitative, Urine Neg (Neg); Ketones, Urine Neg (Neg); Leukocyte Esterase, Urine Neg (Neg); Nitrite, Urine Pos (Neg); Protein, Urine Neg (Neg); Specific Gravity, Urine 1.015 (1.003-1.022); Urobilinogen, Urine 1+ (Normal)
[2022-08-02 18:09] LABS: Bacteria Many /hpf; Red Blood Cells, Urine 0-2 /hpf (0-2); Squamous Epithelial Cells Few /hpf (Few)
[2022-08-02 18:10] LABS: Amorphous Heavy (0-Heavy)
== END | disposition home or self-care (01) ==
LOC: LAB SHORT 15:35
PROVIDERS: Obstetrics & Gynecology
DX: O09.893 Supervision of other high risk pregnancies, third trimester (principal)
CPT/HCPCS: 81001; 87077; 87086; 87147; 87186

== ENCOUNTER 2022-09-10 08:23 | Inpatient (IN) | payer BC, OTHER ==
[~2022-09-10] VITALS: Ht 162.6 cm; Wt 73.5 kg
[2022-09-10 09:05] LABS: BASOPHILS ABSOLUTE AUTO 0.05 K/mm3 (0.00-0.23); BASOPHILS PERCENT AUTO 1 % (0-2); EOSINOPHILS ABSOLUTE AUTO 0.17 K/mm3 (0.00-0.68); EOSINOPHILS PERCENT AUTO 2 % (0-6); Hematocrit 32.5 % (33.0-51.0); Hemoglobin 10.7 g/dL (11.5-16.0); IMMATURE GRAN ABSOLUTE AUTO 0.08 K/mm3 (0.00-0.10); IMMATURE GRAN PERCENT AUTO 1 % (0-1); LYMPHOCYTES ABSOLUTE AUTO 3.08 K/mm3 (0.84-5.20); LYMPHOCYTES PERCENT AUTO 35 % (21-46); MONOCYTES ABSOLUTE AUTO 0.66 K/mm3 (0.16-1.47); MONOCYTES PERCENT AUTO 7 % (4-13); Mean Corpuscular HGB 27.6 pg (26.0-34.0); Mean Corpuscular HGB Conc 32.9 g/dL (31.5-36.5); Mean Corpuscular Volume 84 fL (80-100); Mean Platelet Volume 11.7 fL (9.1-12.4); NEUTROPHILS ABSOLUTE AUTO 4.83 K/mm3 (1.96-9.15); NEUTROPHILS PERCENT AUTO 55 % (41-73); Platelet Count 231 K/mm3 (150-400); RDW Coefficient Variation 15.3 % (11.7-14.2); RDW Standard Deviation 46.5 fL (35.1-46.3); Red Blood Cell Count 3.88 M/mm3 (3.80-5.20); White Blood Cell Count 8.87 K/mm3 (4.00-11.30)
--- NOTE | 2022-09-10 11:33 | NUR ---
09/10/22 1133 Alberto Stark CLINDAMYCIN 900MG STARTED BT DR. SOLOMON AT 1101
--- NOTE | 2022-09-10 14:57 | NUR ---
ASSUMED CARE OF PATIENT AT 0940. PATIENT WIPED WITH CLORAHEXEDINE WIPES. 18G TO RIGHT WRIST AND LEFT HAND. LEFT WRIST IV DC'D D/T PATIENT DISCOMFORT. VS WNL. ADMIT COMPLETE. PREOP COMPLETE PER PROTOCOL. MEDICATED PER EMAR. PATIENT WALKED TO OR. SUPPORT PERSON LUZ SALDIVAR PERMITTED IN OR. PATIENT DELIVERED VIA AT 1113. PATIENT RECOVERED IN IN PACU.
--- NOTE | 2022-09-10 18:59 | NUR ---
EDUCATED PATIENT THAT SHE IS MMR NONIMMUNE/EQUIVOCAL. SHE QUESTIONED THE RESULTS SHE WAS TOLD SHE WAS NONIMMUNE 5 YEARS AGO WHEN SHE DELIVERED HER OLDER CHILD AND RECEIVED AN MMR AT THAT TIME. PATIENT WISHES TO DISCUSS WITH DR. MANDUJANO IN THE MORNING. MMR VACCINE CONSENT IS IN ROOM. BED LOW WITH CALL LIGHT IN REACH. SCDS IN PLACE. [place] DRAINING OLEG URINE.
--- NOTE | 2022-09-10 23:54 | NUR ---
DRESSING REMOVED, STERI STRIPS IN PLACE.
--- NOTE | 2022-09-11 01:07 | NUR ---
PT SHARES THAT HER SO IS NOT THE BABIES FATHER. SHE STATES THAT THE FOB IS TO SOMEONE ELSE AND SHE CURRENTLY HAS A RESTRAINING ORDER AGAINST HIM. SHE PLANS ON DOING APTERNITY TESTING AFTER DISCHARGE.
[2022-09-11 05:55] LABS: BASOPHILS ABSOLUTE AUTO 0.04 K/mm3 (0.00-0.23); BASOPHILS PERCENT AUTO 0 % (0-2); EOSINOPHILS ABSOLUTE AUTO 0.11 K/mm3 (0.00-0.68); EOSINOPHILS PERCENT AUTO 1 % (0-6); Hematocrit 31.5 % (33.0-51.0); Hemoglobin 10.3 g/dL (11.5-16.0); IMMATURE GRAN ABSOLUTE AUTO 0.05 K/mm3 (0.00-0.10); IMMATURE GRAN PERCENT AUTO 1 % (0-1); LYMPHOCYTES PERCENT AUTO 28 % (21-46); MONOCYTES ABSOLUTE AUTO 0.58 K/mm3 (0.16-1.47); MONOCYTES PERCENT AUTO 6 % (4-13); Mean Corpuscular HGB 27.3 pg (26.0-34.0); Mean Corpuscular HGB Conc 32.7 g/dL (31.5-36.5); Mean Corpuscular Volume 84 fL (80-100); Mean Platelet Volume 11.2 fL (9.1-12.4); NEUTROPHILS ABSOLUTE AUTO 6.07 K/mm3 (1.96-9.15); NEUTROPHILS PERCENT AUTO 64 % (41-73); Platelet Count 204 K/mm3 (150-400); RDW Coefficient Variation 15.5 % (11.7-14.2); RDW Standard Deviation 46.9 fL (35.1-46.3); Red Blood Cell Count 3.77 M/mm3 (3.80-5.20); White Blood Cell Count 9.45 K/mm3 (4.00-11.30)
--- NOTE | 2022-09-12 06:31 | NUR ---
PT PASSED GAS DURING NOC SHIFT
--- NOTE | 2022-09-12 10:20 | NUR ---
904- PT OUT TO SMOKE. AT NURSES STATION UNTIL 924 WHEN PT RETURNED TO THE UNIT
[2022-09-12] MEDS ORDERED: IBUP800 PO (10:37)
[2022-09-12] MEDS ORDERED: Percocet 5-3251 EACH PO (10:38)
--- NOTE | 2022-09-12 16:43 | NUR ---
PT D/C'D IN STABLE CONDITION AT 1155. PT RECEIVED BOTH WRITTEN AND VERBAL DISCHARGE INSTRUCTIONS. QUESTIONS ANSWERED. PT VERBALIZES UNDERSTANDING. BELONGINGS TAKEN HOME WITH PT. AND PT ESCORTED TO PRIVATE CAR BY RN.
== END 2022-09-12 11:55 | disposition home or self-care (01) | DRG 788 ==
LOC: BC 08:23
PROVIDERS: ADMIT Obstetrics & Gynecology
PROC: 3E0134Z Introduction of Serum, Toxoid and Vaccine into Subcutaneous Tissue, Percutaneous Approach (ICD-10-PCS; 2022-09-10)
PROC: 10D00Z1 Extraction of Products of Conception, Low, Open Approach (ICD-10-PCS; principal; 2022-09-10 10:00)
DX: O99.214 Obesity complicating childbirth (principal); O24.420 Gestational diabetes mellitus in childbirth, diet controlled; O99.824 Streptococcus B carrier state complicating childbirth; Z23 Encounter for immunization; O99.02 Anemia complicating childbirth; O34.211 Maternal care for low transverse scar from previous cesarean delivery; E11.65 Type 2 diabetes mellitus with hyperglycemia; O36.63X0 Maternal care for excessive fetal growth, third trimester, not applicable or unspecified; Z67.40 Type O blood, Rh positive; Z3A.38 38 weeks gestation of pregnancy; Z37.0 Single live birth; Z88.0 Allergy status to penicillin; Z88.1 Allergy status to other antibiotic agents
CPT/HCPCS: 36415; 82947; 85025; 86850; 86900; 86901; 86923; 90707; A9270; J1885; J2405; J2590; J2765; J3010; J7120

== ENCOUNTER 2022-09-28 23:49 | Emergency (ER) | payer BC, OTHER ==
[~2022-09-28] VITALS: Ht 162.6 cm; Wt 108.0 kg
== END 2022-09-29 01:13 | disposition home or self-care (01) ==
LOC: ER 23:49
DX: K04.7 Periapical abscess without sinus (principal); J45.909 Unspecified asthma, uncomplicated; Z88.0 Allergy status to penicillin; Z88.1 Allergy status to other antibiotic agents; Z79.899 Other long term (current) drug therapy
CPT/HCPCS: 64400; 96372-59; 99282-25; J1885

== ENCOUNTER → 2022-10-21 | Outpatient (CLI) | payer BC, OTHER ==
[2022-10-22 10:19] LABS: Candida species (DNA Probe) Positive (NEGATIVE); G. vaginalis (DNA Probe) Positive (NEGATIVE); T. vaginalis (DNA Probe) Negative (NEGATIVE)
== END | disposition home or self-care (01) ==
LOC: LAB SHORT 15:21
PROVIDERS: Obstetrics & Gynecology
DX: N89.8 Other specified noninflammatory disorders of vagina (principal)
CPT/HCPCS: 87480; 87510; 87660

== ENCOUNTER 2022-12-27 18:24 | Emergency (ER) | payer BC, OTHER ==
[~2022-12-27] VITALS: Ht 162.6 cm; Wt 95.2 kg
[2022-12-27 20:02] LABS: Influenza A, PCR NEGATIVE (NEGATIVE); Influenza B, PCR NEGATIVE (NEGATIVE); Resp Syncytial Virus, PCR NEGATIVE (NEGATIVE); SARS-Cov-2 (COVID-19) PCR, MMC NEGATIVE (NEGATIVE)
[2022-12-27 22:25] VITALS: BP 137/89
== END 2022-12-27 22:25 | disposition home or self-care (01) ==
LOC: ER 18:24
PROVIDERS: Student in an Organized Health Care Education/Training Program
DX: B34.9 Viral infection, unspecified (principal); Z20.822 Contact with and (suspected) exposure to COVID-19; Z88.0 Allergy status to penicillin; Z88.1 Allergy status to other antibiotic agents; J45.909 Unspecified asthma, uncomplicated
CPT/HCPCS: 0241U; 99283

== ENCOUNTER 2023-03-24 17:30 | Emergency (ER) | payer BC, OTHER ==
[~2023-03-24] VITALS: Ht 162.6 cm; Wt 94.3 kg
[2023-03-24 18:00] VITALS: BP 127/79
== END 2023-03-24 20:06 | disposition home or self-care (01) ==
LOC: ER 17:30
DX: U07.1 COVID-19 (principal); J45.909 Unspecified asthma, uncomplicated; Z88.0 Allergy status to penicillin; Z88.1 Allergy status to other antibiotic agents; Z87.891 Personal history of nicotine dependence
CPT/HCPCS: 96374; 96375; 99283-25; J1885; J2405

== ENCOUNTER → 2023-03-25 | Outpatient (CLI) | payer BC, OTHER ==
[2023-03-25 18:34] LABS: Adenovirus Not Detected (NOT DETECT); Coronavirus 229E Not Detected (NOT DETECT); Coronavirus HKU1 Not Detected (NOT DETECT); Coronavirus NL63 Not Detected (NOT DETECT); Coronavirus OC43 Not Detected (NOT DETECT); SARS-Cov-2 (COVID-19), BioFire Not Detected (NOT DETECT)
[2023-03-25 18:35] LABS: Bordetella pertussis Not Detected (NOT DETECT); Chlamydophila pneumoniae Not Detected (NOT DETECT); Human Metapneumovirus Not Detected (NOT DETECT); Human Rhinovirus/Enterovirus Detected (NOT DETECT); Influenza A/2009-H1 Not Detected (NOT DETECT); Influenza A/H1 Not Detected (NOT DETECT); Influenza A/H3 Not Detected (NOT DETECT); Influenza B Not Detected (NOT DETECT); Mycoplasma pneumoniae Not Detected (NOT DETECT); Parainfluenza Virus 1 Not Detected (NOT DETECT); Parainfluenza Virus 2 Not Detected (NOT DETECT); Parainfluenza Virus 3 Not Detected (NOT DETECT); Parainfluenza Virus 4 Not Detected (NOT DETECT); Respiratory Syncytial Virus Not Detected (NOT DETECT)
== END ==
LOC: LAB SHORT 16:20
PROVIDERS: Nurse Practitioner Family
DX: R05.1 Acute cough (principal)
CPT/HCPCS: 0202U

== ENCOUNTER 2023-07-29 03:33 | Emergency (ER) | payer OTHER ==
[~2023-07-29] VITALS: Ht 162.6 cm; Wt 90.7 kg
[2023-07-29 04:54] LABS: BASOPHILS ABSOLUTE AUTO 0.05 K/mm3 (0.00-0.23); BASOPHILS PERCENT AUTO 1 % (0-2); EOSINOPHILS ABSOLUTE AUTO 0.91 K/mm3 (0.00-0.68); EOSINOPHILS PERCENT AUTO 11 % (0-6); Hematocrit 36.1 % (33.0-51.0); Hemoglobin 12.5 g/dL (11.5-16.0); IMMATURE GRAN ABSOLUTE AUTO 0.04 K/mm3 (0.00-0.10); IMMATURE GRAN PERCENT AUTO 1 % (0-1); LYMPHOCYTES ABSOLUTE AUTO 3.23 K/mm3 (0.84-5.20); LYMPHOCYTES PERCENT AUTO 37 % (21-46); MONOCYTES ABSOLUTE AUTO 0.67 K/mm3 (0.16-1.47); MONOCYTES PERCENT AUTO 8 % (4-13); Mean Corpuscular HGB 29.1 pg (26.0-34.0); Mean Corpuscular HGB Conc 34.6 g/dL (31.5-36.5); Mean Corpuscular Volume 84 fL (80-100); NEUTROPHILS ABSOLUTE AUTO 3.74 K/mm3 (1.96-9.15); NEUTROPHILS PERCENT AUTO 43 % (41-73); RDW Coefficient Variation 13.2 % (11.7-14.2); Red Blood Cell Count 4.29 M/mm3 (3.80-5.20); White Blood Cell Count 8.64 K/mm3 (4.00-11.30)
[2023-07-29 04:55] LABS: Source, Urine Clean Catch
[2023-07-29 05:11] LABS: Bilirubin, Urine Neg (Neg); Blood, Urine Neg (Neg); Glucose Qualitative, Urine Neg (Neg); Ketones, Urine Neg (Neg); Leukocyte Esterase, Urine 1+ (Neg); Nitrite, Urine Neg (Neg); Protein, Urine Neg (Neg); Urobilinogen, Urine NORM (Normal)
[2023-07-29 05:14] LABS: Platelet Count 219 K/mm3 (150-400)
[2023-07-29 05:30] LABS: Appearance, Urine Hazy (Clear); Color, Urine Yellow (P-Yellow)
[2023-07-29 05:31] LABS: Amorphous Mod (0-Heavy); Bacteria Few /hpf; Mucus Light (0-Heavy); Red Blood Cells, Urine Not Seen /hpf (0-2); Squamous Epithelial Cells Mod /hpf (Few)
[2023-07-29 05:49] LABS: Albumin, Blood 3.4 g/dL (3.4-5.0); Bilirubin, Total 0.2 mg/dL (0.1-1.0); Bun/Creatinine Ratio 14.6 (12.0-20.0); Calcium, Blood 8.7 mg/dL (8.5-10.1); Creatinine, Blood 0.41 mg/dL (0.40-1.00); Globulin, Blood 3.5 g/dL (2.2-4.0); Potassium, Blood 3.9 mmol/L (3.5-5.5); Total Protein, Blood 6.9 g/dL (6.4-8.2)
[2023-07-29] MEDS ORDERED: Ibuprofen600 MG PO (06:08)
[2023-07-29] MEDS ORDERED: ACET500 PO (06:08)
[2023-07-29 06:15] VITALS: BP 108/61
[2023-07-30] MEDS ORDERED: PRENATAL TABLE1 EAC2 PO (01:51)
[2023-07-30] MEDS ORDERED: Flonase 0.05% N16 GM (01:51)
[2023-07-30] MEDS ORDERED: MULTI-VITAMIN1 EAC2 PO (01:51)
[2023-07-30] MEDS ORDERED: TRAM50 PO (04:54)
== END 2023-07-29 06:20 | disposition home or self-care (01) ==
LOC: ER 03:33
PROVIDERS: Emergency Medicine
DX: O02.1 Missed abortion (principal); E86.0 Dehydration; J45.909 Unspecified asthma, uncomplicated; Z87.891 Personal history of nicotine dependence; Z87.59 Personal history of other complications of pregnancy, childbirth and the puerperium; Z88.0 Allergy status to penicillin; Z88.1 Allergy status to other antibiotic agents
CPT/HCPCS: 76801; 80053; 81001; 84702; 85025; 86900; 86901; 87086; 96361; 96374; 96375; 99284-25; A9270; J1885; J2405; J7030

== ENCOUNTER 2023-07-30 01:20 | Emergency (ER) | payer OTHER ==
[~2023-07-30] VITALS: Ht 162.6 cm; Wt 90.7 kg
[~2023-07-30 01:20] MED LIST changes: +ACET500 PO; +Ibuprofen600 MG PO
[2023-07-30] MEDS ORDERED: PRENATAL TABLE1 EAC2 PO (01:51)
[2023-07-30] MEDS ORDERED: MULTI-VITAMIN1 EAC2 PO (01:51)
[2023-07-30] MEDS ORDERED: Flonase 0.05% N16 GM (01:51)
[2023-07-30 03:12] LABS: BASOPHILS ABSOLUTE AUTO 0.04 K/mm3 (0.00-0.23); BASOPHILS PERCENT AUTO 1 % (0-2); EOSINOPHILS ABSOLUTE AUTO 0.89 K/mm3 (0.00-0.68); EOSINOPHILS PERCENT AUTO 10 % (0-6); Hematocrit 32.3 % (33.0-51.0); IMMATURE GRAN ABSOLUTE AUTO 0.03 K/mm3 (0.00-0.10); IMMATURE GRAN PERCENT AUTO 0 % (0-1); LYMPHOCYTES ABSOLUTE AUTO 3.24 K/mm3 (0.84-5.20); LYMPHOCYTES PERCENT AUTO 38 % (21-46); MONOCYTES PERCENT AUTO 6 % (4-13); Mean Corpuscular HGB 29.5 pg (26.0-34.0); Mean Corpuscular HGB Conc 34.1 g/dL (31.5-36.5); Mean Corpuscular Volume 87 fL (80-100); Mean Platelet Volume 9.9 fL (9.1-12.4); NEUTROPHILS ABSOLUTE AUTO 3.82 K/mm3 (1.96-9.15); NEUTROPHILS PERCENT AUTO 45 % (41-73); Platelet Count 267 K/mm3 (150-400); RDW Coefficient Variation 13.2 % (11.7-14.2); RDW Standard Deviation 41.1 fL (35.1-46.3); Red Blood Cell Count 3.73 M/mm3 (3.80-5.20); White Blood Cell Count 8.52 K/mm3 (4.00-11.30)
[2023-07-30 03:30] LABS: Albumin, Blood 3.1 g/dL (3.4-5.0); Bilirubin, Total 0.2 mg/dL (0.1-1.0); Bun/Creatinine Ratio 14.7 (12.0-20.0); Calcium, Blood 8.3 mg/dL (8.5-10.1); Creatinine, Blood 0.41 mg/dL (0.40-1.00); Globulin, Blood 3.2 g/dL (2.2-4.0); Total Protein, Blood 6.3 g/dL (6.4-8.2)
[2023-07-30 04:20] VITALS: BP 102/63
[2023-07-30 04:28] LABS: BASOPHILS ABSOLUTE AUTO 0.02 K/mm3 (0.00-0.23); BASOPHILS PERCENT AUTO 0 % (0-2); EOSINOPHILS ABSOLUTE AUTO 0.82 K/mm3 (0.00-0.68); EOSINOPHILS PERCENT AUTO 10 % (0-6); Hematocrit 31.1 % (33.0-51.0); Hemoglobin 10.6 g/dL (11.5-16.0); IMMATURE GRAN ABSOLUTE AUTO 0.02 K/mm3 (0.00-0.10); IMMATURE GRAN PERCENT AUTO 0 % (0-1); LYMPHOCYTES ABSOLUTE AUTO 3.32 K/mm3 (0.84-5.20); LYMPHOCYTES PERCENT AUTO 40 % (21-46); MONOCYTES ABSOLUTE AUTO 0.48 K/mm3 (0.16-1.47); MONOCYTES PERCENT AUTO 6 % (4-13); Mean Corpuscular HGB 29.5 pg (26.0-34.0); Mean Corpuscular HGB Conc 34.1 g/dL (31.5-36.5); Mean Corpuscular Volume 87 fL (80-100); Mean Platelet Volume 9.8 fL (9.1-12.4); NEUTROPHILS ABSOLUTE AUTO 3.55 K/mm3 (1.96-9.15); NEUTROPHILS PERCENT AUTO 43 % (41-73); Platelet Count 250 K/mm3 (150-400); RDW Coefficient Variation 13.1 % (11.7-14.2); RDW Standard Deviation 41.2 fL (35.1-46.3); Red Blood Cell Count 3.59 M/mm3 (3.80-5.20); White Blood Cell Count 8.21 K/mm3 (4.00-11.30)
[2023-07-30] MEDS ORDERED: TRAM50 PO (04:54)
== END 2023-07-30 05:22 | disposition home or self-care (01) ==
LOC: ER 01:20
PROVIDERS: Emergency Medicine
DX: O03.4 Incomplete spontaneous abortion without complication (principal); E86.0 Dehydration; Z88.0 Allergy status to penicillin; Z88.1 Allergy status to other antibiotic agents; Z79.899 Other long term (current) drug therapy; J45.909 Unspecified asthma, uncomplicated; Z87.891 Personal history of nicotine dependence
CPT/HCPCS: 80053; 85025; 96361; 96374; 96375; 99284-25; A9270; J1885; J2405; J7030

== ENCOUNTER 2023-08-24 06:05 | Day surgery (SDC) | payer OTHER ==
[~2023-08-24] VITALS: Ht 162.6 cm; Wt 94.1 kg
[~2023-08-24 06:05] MED LIST changes: +Flonase 0.05% N16 GM; +MULTI-VITAMIN1 EAC2 PO; +PRENATAL TABLE1 EAC2 PO; +TRAM50 PO
[2023-08-24] MEDS ORDERED: DULERA 100 MCG/13 GM INH (06:43)
[2023-08-24] MEDS ORDERED: FAMO20 (06:43)
[2023-08-24] MEDS ORDERED: SERT50 PO (06:44)
--- NOTE | 2023-08-24 07:17 | NUR ---
08/24/23 [address] YISEL JARVIS PROVIDED; B WHEEZES EXP UPPER
[2023-08-24 08:44] VITALS: BP 110/81
--- NOTE | 2023-08-24 09:21 | NUR ---
08/24/23 0921 Dinorah Davis PATIENT ASSISTED TO BATHROOM SBA WITHOUT ISSUES. PATIENT PROVIDED BREATHING TREATMENT AND IBUPROFEN PO PER ORDERS. 0915: PATIENT REPORTS NAUSEA IS MILD BUT TOLERABLE. STATES READY TO GO HOME. REPORTS NO PAIN.
== END 2023-08-24 09:20 | disposition home or self-care (01) ==
LOC: ORSCSDS 06:05
PROVIDERS: Obstetrics & Gynecology
PROC: 10D17ZZ Extraction of Products of Conception, Retained, Via Natural or Artificial Opening (ICD-10-PCS; principal; 2023-08-24 07:30)
DX: O02.1 Missed abortion (principal); O72.2 Delayed and secondary postpartum hemorrhage; N71.1 Chronic inflammatory disease of uterus; K21.9 Gastro-esophageal reflux disease without esophagitis; J45.909 Unspecified asthma, uncomplicated; Z79.899 Other long term (current) drug therapy; E03.9 Hypothyroidism, unspecified; E66.9 Obesity, unspecified; Z68.35 Body mass index [BMI] 35.0-35.9, adult
CPT/HCPCS: 76998; 88305; A9270; J2250; J2704; J3010; J7060; J7120

== ENCOUNTER 2024-05-17 04:58 | Emergency (ER) | payer OTHER ==
[~2024-05-17] VITALS: Ht 162.6 cm; Wt 88.5 kg
[~2024-05-17 04:58] MED LIST changes: +DULERA 100 MCG/13 GM INH; +FAMO20; +SERT50 PO
[2024-05-17] MEDS ORDERED: Ondansetron HCl 2 MG / ML 2ML Vial IV PRN (05:20)
[2024-05-17 05:27] LABS: BASOPHILS ABSOLUTE AUTO 0.08 K/mm3 (0.00-0.23); BASOPHILS PERCENT AUTO 1 % (0-2); EOSINOPHILS ABSOLUTE AUTO 3.13 K/mm3 (0.00-0.68); EOSINOPHILS PERCENT AUTO 25 % (0-6); Hematocrit 38.3 % (33.0-51.0); Hemoglobin 12.8 g/dL (11.5-16.0); IMMATURE GRAN ABSOLUTE AUTO 0.02 K/mm3 (0.00-0.10); IMMATURE GRAN PERCENT AUTO 0 % (0-1); LYMPHOCYTES ABSOLUTE AUTO 4.13 K/mm3 (0.84-5.20); LYMPHOCYTES PERCENT AUTO 33 % (21-46); MONOCYTES ABSOLUTE AUTO 0.72 K/mm3 (0.16-1.47); MONOCYTES PERCENT AUTO 6 % (4-13); Mean Corpuscular HGB 28.3 pg (26.0-34.0); Mean Corpuscular HGB Conc 33.4 g/dL (31.5-36.5); Mean Corpuscular Volume 85 fL (80-100); NEUTROPHILS ABSOLUTE AUTO 4.36 K/mm3 (1.96-9.15); NEUTROPHILS PERCENT AUTO 35 % (41-73); Platelet Count 357 K/mm3 (150-400); RDW Coefficient Variation 13.7 % (11.7-14.2); RDW Standard Deviation 42.4 fL (35.1-46.3); Red Blood Cell Count 4.53 M/mm3 (3.80-5.20); White Blood Cell Count 12.44 K/mm3 (4.00-11.30)
[2024-05-17 05:44] LABS: Albumin, Blood 3.7 g/dL (3.4-5.0); Albumin/Globulin Ratio 0.9 (0.8-1.8); Bilirubin, Total 0.4 mg/dL (0.1-1.0); Bun/Creatinine Ratio 23.9 (12.0-20.0); Calcium, Blood 9.1 mg/dL (8.5-10.1); Creatinine, Blood 0.55 mg/dL (0.40-1.00); Globulin, Blood 4.2 g/dL (2.2-4.0); Total Protein, Blood 7.9 g/dL (6.4-8.2)
[2024-05-17 05:57] LABS: Source, Urine Clean Catch
[2024-05-17 06:01] LABS: Bilirubin, Urine Neg (Neg); Blood, Urine Neg (Neg); Glucose Qualitative, Urine Neg (Neg); Ketones, Urine Neg (Neg); Leukocyte Esterase, Urine Neg (Neg); Nitrite, Urine Neg (Neg); Protein, Urine Neg (Neg); Specific Gravity, Urine 1.025 (1.003-1.022); Urobilinogen, Urine NORM (Normal)
[2024-05-17] MEDS ORDERED: Prilosec Otc20 MG PO (06:02)
[2024-05-17 06:09] LABS: Appearance, Urine Clear (Clear); Color, Urine Yellow (P-Yellow)
[2024-05-17] MEDS ORDERED: Acetaminophen 500 MG Tab PO ONE (06:35)
[2024-05-17] MEDS ORDERED: NS 1,000 ML IV SCH (06:40)
[2024-05-17] MEDS ORDERED: Metoclopramide HCl 5MG / ML 2ML Vial IV ONE (06:45)
[2024-05-17] MEDS ORDERED: METO10 PO (08:09)
[2024-05-17 08:25] VITALS: BP 101/66
== END 2024-05-17 08:26 | disposition home or self-care (01) ==
LOC: ER 04:58
PROVIDERS: Emergency Medicine
DX: O99.891 Other specified diseases and conditions complicating pregnancy (principal); R10.31 Right lower quadrant pain; R10.32 Left lower quadrant pain; R11.0 Nausea; J45.909 Unspecified asthma, uncomplicated; E03.9 Hypothyroidism, unspecified; Z87.891 Personal history of nicotine dependence; Z79.51 Long term (current) use of inhaled steroids; Z79.899 Other long term (current) drug therapy; Z88.0 Allergy status to penicillin; Z88.6 Allergy status to analgesic agent
CPT/HCPCS: 76801; 76817; 80053; 81003; 81025; 83690; 84484; 84702; 84703; 85025; 93005; 93010; 96361; 96374; 99284-25; A9270; J2765; J7030

== ENCOUNTER → 2024-05-30 | Outpatient (CLI) | payer OTHER ==
[~2024-05-30] MED LIST changes: +METO10 PO
[2024-05-30 17:03] LABS: Source, Urine Clean Catch
[2024-05-30 18:57] LABS: Appearance, Urine Clear (Clear); Bilirubin, Urine Neg (Neg); Blood, Urine Neg (Neg); Color, Urine Yellow (P-Yellow); Glucose Qualitative, Urine Neg (Neg); Ketones, Urine Neg (Neg); Leukocyte Esterase, Urine Neg (Neg); Nitrite, Urine Neg (Neg); Protein, Urine Neg (Neg); Specific Gravity, Urine 1.025 (1.003-1.022); Urobilinogen, Urine NORM (Normal)
[2024-05-30 19:27] LABS: U Amphetamine Screen Not Detected; U Barbituate Screen Not Detected; U Benzodiazapine Screen Not Detected; U Buprenorphine Screen Not Detected; U Cannabinoids Screen DETECTED; U Cocaine Screen Not Detected; U Methadone Screen Not Detected; U Methamphetamine Screen Not Detected; U Opiates Screen Not Detected; U Oxycodone Screen Not Detected; U Phencyclidine Screen Not Detected
[2024-06-04 14:27] LABS: 11-NOR-9-CARBOXY-THC,URN,QUANT >500 ng/mL
== END ==
LOC: LAB SHORT 17:01 → LAB 17:01
PROVIDERS: Advanced Practice Midwife
DX: Z34.90 Encounter for supervision of normal pregnancy, unspecified, unspecified trimester (principal)
CPT/HCPCS: 81003; 87086; G0480

== ENCOUNTER → 2024-06-05 | Outpatient (CLI) | payer OTHER | END | disposition home or self-care (01) | LOC: LAB SHORT 07:52 → LAB 07:52 | DX: R82.81 Pyuria (principal) | CPT/HCPCS: 87086 ==

== ENCOUNTER 2024-06-19 06:47 | Emergency (ER) | payer OTHER ==
[~2024-06-19] VITALS: Ht 162.6 cm; Wt 88.5 kg
[2024-06-19] MEDS ORDERED: NS 1,000 ML IV SCH (08:15)
[2024-06-19] MEDS ORDERED: Ondansetron HCl 2 MG / ML 2ML Vial IV ONE (08:15)
[2024-06-19 08:55] LABS: BASOPHILS ABSOLUTE AUTO 0.04 K/mm3 (0.00-0.23); BASOPHILS PERCENT AUTO 0 % (0-2); EOSINOPHILS ABSOLUTE AUTO 1.21 K/mm3 (0.00-0.68); EOSINOPHILS PERCENT AUTO 11 % (0-6); Hematocrit 37.3 % (33.0-51.0); Hemoglobin 12.3 g/dL (11.5-16.0); IMMATURE GRAN ABSOLUTE AUTO 0.04 K/mm3 (0.00-0.10); IMMATURE GRAN PERCENT AUTO 0 % (0-1); LYMPHOCYTES ABSOLUTE AUTO 1.45 K/mm3 (0.84-5.20); LYMPHOCYTES PERCENT AUTO 14 % (21-46); MONOCYTES ABSOLUTE AUTO 0.65 K/mm3 (0.16-1.47); MONOCYTES PERCENT AUTO 6 % (4-13); Mean Corpuscular HGB 28.2 pg (26.0-34.0); Mean Corpuscular Volume 86 fL (80-100); Mean Platelet Volume 10.3 fL (9.1-12.4); NEUTROPHILS PERCENT AUTO 68 % (41-73); Platelet Count 256 K/mm3 (150-400); RDW Coefficient Variation 13.3 % (11.7-14.2); Red Blood Cell Count 4.36 M/mm3 (3.80-5.20); White Blood Cell Count 10.59 K/mm3 (4.00-11.30)
[2024-06-19 09:35] LABS: Albumin, Blood 3.6 g/dL (3.4-5.0); Albumin/Globulin Ratio 0.9 (0.8-1.8); Bilirubin, Total 0.4 mg/dL (0.1-1.0); Bun/Creatinine Ratio 18.8 (12.0-20.0); Calcium, Blood 8.7 mg/dL (8.5-10.1); Creatinine, Blood 0.37 mg/dL (0.40-1.00); Globulin, Blood 3.8 g/dL (2.2-4.0); Potassium, Blood 4.1 mmol/L (3.5-5.5); Total Protein, Blood 7.4 g/dL (6.4-8.2)
[2024-06-19] MEDS ORDERED: PROC25S PR (09:42)
[2024-06-19] MEDS ORDERED: Metoclopramide HCl 5MG / ML 2ML Vial IV ONE (10:00)
[2024-06-19 10:15] VITALS: BP 111/63
== END 2024-06-19 10:21 | disposition home or self-care (01) ==
LOC: ER 06:47
PROVIDERS: Physician Assistant
DX: O21.0 Mild hyperemesis gravidarum (principal); Z88.8 Allergy status to other drugs, medicaments and biological substances; Z79.899 Other long term (current) drug therapy; Z87.891 Personal history of nicotine dependence; Z3A.10 10 weeks gestation of pregnancy
CPT/HCPCS: 80053; 83690; 84702; 85025; 96361; 96374; 96375; 99284-25; J2405; J2765; J7030

== ENCOUNTER → 2024-12-26 | Outpatient (CLI) | payer OTHER | LOC: LAB 15:27 → LAB SHORT 15:27 | DX: O09.93 Supervision of high risk pregnancy, unspecified, third trimester (principal); O34.211 Maternal care for low transverse scar from previous cesarean delivery; O99.212 Obesity complicating pregnancy, second trimester; O99.322 Drug use complicating pregnancy, second trimester; O99.342 Other mental disorders complicating pregnancy, second trimester; O99.512 Diseases of the respiratory system complicating pregnancy, second trimester ==

== ENCOUNTER 2025-01-23 05:23 | Inpatient (IN) | payer OTHER ==
[~2025-01-23] VITALS: Ht 162.6 cm; Wt 99.1 kg
[2025-01-23] VITALS (52 sets, daily range): BP systolic 103–166; BP diastolic 56–97
[~2025-01-23 05:23] MED LIST changes: +PROC25S PR
[2025-01-23] MEDS ORDERED: Citric Acid/Sodium Citrate 30 ML BTL PO SCH (05:45)
[2025-01-23] MEDS ORDERED: GENTAMICIN SULFATE IV SCH (05:45)
[2025-01-23] MEDS ORDERED: Lactated Ringer's 1,000 ML IV SCH ×2 (05:45)
[2025-01-23] MEDS ORDERED: NS IV SCH (05:45)
[2025-01-23] MEDS ORDERED: Clindamycin 900mg in D5W 50ML 50 ML IV SCH (05:45)
[2025-01-23] MEDS ORDERED: Metoclopramide HCl 5MG / ML 2ML Vial IV SCH (05:45)
[2025-01-23 06:31] LABS: BASOPHILS ABSOLUTE AUTO 0.02 K/mm3 (0.00-0.23); BASOPHILS PERCENT AUTO 0 % (0-2); EOSINOPHILS ABSOLUTE AUTO 0.13 K/mm3 (0.00-0.68); EOSINOPHILS PERCENT AUTO 2 % (0-6); Hematocrit 30.8 % (33.0-51.0); Hemoglobin 9.9 g/dL (11.5-16.0); IMMATURE GRAN ABSOLUTE AUTO 0.06 K/mm3 (0.00-0.10); IMMATURE GRAN PERCENT AUTO 1 % (0-1); LYMPHOCYTES ABSOLUTE AUTO 2.55 K/mm3 (0.84-5.20); LYMPHOCYTES PERCENT AUTO 33 % (21-46); MONOCYTES PERCENT AUTO 8 % (4-13); Mean Corpuscular HGB 25.8 pg (26.0-34.0); Mean Corpuscular HGB Conc 32.1 g/dL (31.5-36.5); Mean Corpuscular Volume 80 fL (80-100); Mean Platelet Volume 11.6 fL (9.1-12.4); NEUTROPHILS ABSOLUTE AUTO 4.44 K/mm3 (1.96-9.15); NEUTROPHILS PERCENT AUTO 57 % (41-73); Platelet Count 184 K/mm3 (150-400); RDW Coefficient Variation 15.2 % (11.7-14.2); RDW Standard Deviation 44.1 fL (35.1-46.3); Red Blood Cell Count 3.84 M/mm3 (3.80-5.20)
[2025-01-23] MEDS ORDERED: Albuterol 2.5 MG/3 ML VIAL INH PRN (07:35)
[2025-01-23] MEDS ORDERED: HYDROmorphone HCl/Pf 1MG SYR IV PRN (07:40)
[2025-01-23] MEDS ORDERED: FentaNYL Citrate 50 MCG/ML 2 ML Injection IV PRN ×2 (07:40)
[2025-01-23] MEDS ORDERED: Oxytocin 10 Unit / ML Vial ONE (08:02)
[2025-01-23] MEDS ORDERED: Glycopyrrolate 0.2 MG/ML 5ML VIAL ONE (08:03)
[2025-01-23] MEDS ORDERED: Ondansetron HCl 2 MG / ML 2ML Vial ONE (08:05)
[2025-01-23] MEDS ORDERED: Phenylephrine HCl 100 MCG/ML-NS 10MLSYR (1MG/10ML) ONE (08:05)
[2025-01-23] MEDS ORDERED: ePHEDrine Sulfate 50 MG/ML 1ML Injection ONE (08:07)
[2025-01-23] MEDS ORDERED: Dexamethasone Sod Phos 10 MG/ML 1ML VIAL ONE (08:16)
--- NOTE | 2025-01-23 08:23 | NUR ---
01/23/25 0823 Lulu Briggs VIABLE FEMALE BORN AT 0808 WITH SPONTANOUS CRY WITH 9/9 APGARS. WEIGHT 8-5 (4060) WITH LENGTH 20". SEE LABOR SUMMARY FOR OTHER MEASURE. BILATERAL SALPINGECTOMY DONE AND SENT TO PATHOLOGY.
[2025-01-23] MEDS ORDERED: OxyCODONE HCL 5 MG TAB PO PRN (08:55)
[2025-01-23] MEDS ORDERED: Ondansetron HCl 2 MG / ML 2ML Vial IV PRN (09:00)
[2025-01-23] MEDS ORDERED: Prenatal Vit/FE Fumarate/FA 1 Tab PO SCH (09:00)
[2025-01-23] MEDS ORDERED: Lanolin Cream TOP PRN (09:00)
[2025-01-23] MEDS ORDERED: Morphine Sulfate 4 MG/1 ML Injection IV PRN (09:00)
[2025-01-23] MEDS ORDERED: OXYTOCIN/RINGER'S LACTATE 500 ML IV SCH ×2 (09:00→09:10)
[2025-01-23] MEDS ORDERED: Simethicone 80 MG Chew PO PRN (09:00)
[2025-01-23] MEDS ORDERED: Rho(D) Immune Globulin 300 MCG / SYR IM ONE (09:00)
[2025-01-23] MEDS ORDERED: Misoprostol 200 MCG Tab PR PRN (09:00)
[2025-01-23] MEDS ORDERED: Magnesium Hydroxide Conc 10 ML UDC PO PRN (09:05)
[2025-01-23] MEDS ORDERED: Promethazine HCl 25 MG Tab PO PRN (09:05)
[2025-01-23] MEDS ORDERED: Measles/Mumps/Rubella Vaccine 0.5 ML Vial SC SCH (09:05)
[2025-01-23] MEDS ORDERED: Methylergonovine Maleate 0.2MG / ML 1ML Amp IM PRN (09:05)
[2025-01-23] MEDS ORDERED: Metoclopramide HCl 10 MG Tab PO PRN (09:05)
[2025-01-23] MEDS ORDERED: Carboprost Tromethamine 250 MCG/ML 1ML Amp IM PRN (09:10)
[2025-01-23] MEDS ORDERED: DiphenhydrAMINE HCL 25 MG Cap PO PRN (09:10)
[2025-01-23] MEDS ORDERED: Acetaminophen 500 MG Tab PO PRN (09:10)
[2025-01-23] MEDS ORDERED: Ketorolac Tromethamine 30mg Vial IV SCH (10:00)
--- NOTE | 2025-01-23 13:35 | NUR ---
PHONE CALL TO DR MANDUJANO AT APPROX 1240 REGARDING PT PAIN. DR MANDUJANO RETURNED CALL AT 1330. NOTIFIED OF PT PAIN LEVEL BEING 10/10 AND GIVING TWO DOSES OF MORPHINE IN ORDER TO CONTROL PAIN. ORDER FOR GABAPENTIN 300MG PO Q8H PRN IF NEEDED. ALSO NOTIFIED DR MANDUJANO OF EPDS SCORE OF 10 AND THAT PRESS FEEDER CONSULT WAS BEING PLACED. SHE WILL SEE PT IN OFFICE WITHIN 2 WEEKS.
[2025-01-23] MEDS ORDERED: Gabapentin 300 MG Cap PO PRN (13:40)
[2025-01-23] MEDS ORDERED: PRENATAL TABLE1 EAC2 PO (14:51)
[2025-01-23] MEDS ORDERED: FERSU300 PO (14:51)
--- NOTE | 2025-01-23 14:51 | NUR ---
REPORT TO SHANTE Leary RN
--- NOTE | 2025-01-23 14:56 | NUR ---
DR MANDUJANO NOTIFIED OF PT RECENT FUNDAL RUB THAT HAD SOME CLOTS AND THAT THE PAD WEIGHED 120GM. ALSO NOTIFIED OF PT'S CONTINUED PAIN IN THE LLQ, PT WAS GIVEN GABAPENTIN RECENTLY PER ORDER, AND ALSO MEDICATED WITH OTHER ROUTINE PAIN MEDICATION PER ORDER. NO NEW ORDERS AT THIS TIME.
[2025-01-23] MEDS ORDERED: Ketorolac Tromethamine 30mg Vial IV PRN (15:00)
[2025-01-23] MEDS ORDERED: Ibuprofen 400 MG Tab PO SCH (16:00)
[2025-01-23] MEDS ORDERED: Tranexamic Acid 100 ML IV ONE ×2 (17:25→17:30)
--- NOTE | 2025-01-23 17:39 | NUR ---
RN ATTEMPTED TO GET PT UP TO BATHROOM, PT COMPLAINED OF "GUSHING" RN NOTED LARGE CLOTS AND ASSISTED PT BACK TO BED. PERFORMED FUNDAL,. FIRM AT UMBILICUSM. MULTIPLE LARGE CLOTS EXPRESSED W/ QBL OF 293. VSS. MANDUJANO CALLED IMMEDIATELY AND RN RECEIVED ORDERS FOR TXA, 2ND BAG OF PIT, AND CBC. RN TO UPDATE VOCATIONAL ED INSTRUCTOR PHYSICIAN IF BLEEDING CONTINUES.
[2025-01-23] MEDS ORDERED: Clindamycin 900mg in D5W 50ML 50 ML IV ONE (18:15)
[2025-01-23 18:28] LABS: BASOPHILS ABSOLUTE AUTO 0.02 K/mm3 (0.00-0.23); BASOPHILS PERCENT AUTO 0 % (0-2); EOSINOPHILS ABSOLUTE AUTO 0.01 K/mm3 (0.00-0.68); EOSINOPHILS PERCENT AUTO 0 % (0-6); Hematocrit 28.6 % (33.0-51.0); Hemoglobin 9.2 g/dL (11.5-16.0); IMMATURE GRAN ABSOLUTE AUTO 0.07 K/mm3 (0.00-0.10); IMMATURE GRAN PERCENT AUTO 1 % (0-1); LYMPHOCYTES ABSOLUTE AUTO 1.46 K/mm3 (0.84-5.20); LYMPHOCYTES PERCENT AUTO 12 % (21-46); MONOCYTES PERCENT AUTO 6 % (4-13); Mean Corpuscular HGB 25.4 pg (26.0-34.0); Mean Corpuscular HGB Conc 32.2 g/dL (31.5-36.5); Mean Corpuscular Volume 79 fL (80-100); Mean Platelet Volume 12.2 fL (9.1-12.4); NEUTROPHILS ABSOLUTE AUTO 9.97 K/mm3 (1.96-9.15); NEUTROPHILS PERCENT AUTO 82 % (41-73); Platelet Count 205 K/mm3 (150-400); RDW Coefficient Variation 14.6 % (11.7-14.2); RDW Standard Deviation 41.8 fL (35.1-46.3); Red Blood Cell Count 3.62 M/mm3 (3.80-5.20); White Blood Cell Count 12.23 K/mm3 (4.00-11.30)
[2025-01-23 18:46] LABS: International Normalized Ratio 0.93; Prothrombin Time Results 10.3 Sec (9.7-11.5)
[2025-01-23] MEDS ORDERED: Mometasone/Formoterol MDI 200/5 mcg 13 GM INH SCH (19:30)
[2025-01-23] MEDS ORDERED: NS 500 ML IV ONE (19:40)
[2025-01-23] MEDS ORDERED: NS 1,000 ML IV SCH (19:45)
[2025-01-23] MEDS ORDERED: Docusate Sodium 100 MG Cap PO SCH (21:00)
[2025-01-24] VITALS (11 sets, daily range): BP systolic 100–133; BP diastolic 57–78
[2025-01-24 00:22] LABS: BASOPHILS ABSOLUTE AUTO 0.03 K/mm3 (0.00-0.23); BASOPHILS PERCENT AUTO 0 % (0-2); EOSINOPHILS ABSOLUTE AUTO 0.01 K/mm3 (0.00-0.68); EOSINOPHILS PERCENT AUTO 0 % (0-6); Hematocrit 26.1 % (33.0-51.0); Hemoglobin 8.4 g/dL (11.5-16.0); IMMATURE GRAN ABSOLUTE AUTO 0.07 K/mm3 (0.00-0.10); IMMATURE GRAN PERCENT AUTO 1 % (0-1); LYMPHOCYTES PERCENT AUTO 22 % (21-46); MONOCYTES ABSOLUTE AUTO 1.15 K/mm3 (0.16-1.47); MONOCYTES PERCENT AUTO 10 % (4-13); Mean Corpuscular HGB 25.5 pg (26.0-34.0); Mean Corpuscular HGB Conc 32.2 g/dL (31.5-36.5); Mean Corpuscular Volume 79 fL (80-100); Mean Platelet Volume 12.1 fL (9.1-12.4); NEUTROPHILS ABSOLUTE AUTO 8.12 K/mm3 (1.96-9.15); NEUTROPHILS PERCENT AUTO 68 % (41-73); Platelet Count 202 K/mm3 (150-400); RDW Coefficient Variation 14.7 % (11.7-14.2); RDW Standard Deviation 42.8 fL (35.1-46.3); Red Blood Cell Count 3.29 M/mm3 (3.80-5.20); White Blood Cell Count 11.98 K/mm3 (4.00-11.30)
--- NOTE | 2025-01-24 00:29 | NUR ---
PATIENT UP AND WALKING AROUND ROOM. VOIDS WNL AND MINIMAL BLOOD ON PAD. PATIENT REPORTS FEELING BETTER WHILE STANDING AND IS FOLDING BEDDING BECAUSE SHE "WANTS SOMETHING TO DO." REMINDED TO NOT OVER DO ACTIVITY. VS MOVED TO Q2H PER PPH PROTOCOL. MEDICATED PER EMAR.
[2025-01-24 06:54] LABS: BASOPHILS ABSOLUTE AUTO 0.03 K/mm3 (0.00-0.23); BASOPHILS PERCENT AUTO 0 % (0-2); EOSINOPHILS ABSOLUTE AUTO 0.11 K/mm3 (0.00-0.68); EOSINOPHILS PERCENT AUTO 1 % (0-6); Hematocrit 27.8 % (33.0-51.0); IMMATURE GRAN ABSOLUTE AUTO 0.08 K/mm3 (0.00-0.10); IMMATURE GRAN PERCENT AUTO 1 % (0-1); LYMPHOCYTES ABSOLUTE AUTO 3.49 K/mm3 (0.84-5.20); LYMPHOCYTES PERCENT AUTO 29 % (21-46); MONOCYTES ABSOLUTE AUTO 1.13 K/mm3 (0.16-1.47); MONOCYTES PERCENT AUTO 9 % (4-13); Mean Corpuscular HGB 25.7 pg (26.0-34.0); Mean Corpuscular HGB Conc 32.4 g/dL (31.5-36.5); Mean Corpuscular Volume 79 fL (80-100); Mean Platelet Volume 11.3 fL (9.1-12.4); NEUTROPHILS ABSOLUTE AUTO 7.25 K/mm3 (1.96-9.15); NEUTROPHILS PERCENT AUTO 60 % (41-73); Platelet Count 225 K/mm3 (150-400); RDW Coefficient Variation 14.8 % (11.7-14.2); RDW Standard Deviation 42.9 fL (35.1-46.3); White Blood Cell Count 12.09 K/mm3 (4.00-11.30)
[2025-01-24] MEDS ORDERED: Ibuprofen 400 MG Tab PO SCH (08:00)
[2025-01-24] MEDS ORDERED: Sod Ferric Gluc Complx/Sucrose 125 MG in NS 100 ML IV SCH (09:00)
[2025-01-24] MEDS ORDERED: Ibuprofen 400 MG Tab PO PRN (11:00)
--- NOTE | 2025-01-24 11:17 | NUR ---
INVESTOR RELATIONS ANALYST IN ROOM WITH PATIENT REGARDING EPDS SCORE
--- NOTE | 2025-01-24 12:30 | NUR ---
JUNIOR SALES ASSISTANT REPORTS TO RN THAT PATIENT EXHIBITS SIGNS OF DEPRESSION. THEY DISCUSSED ANTIDEPRESSANTS AND THE PATIENT STATES THAT SHE DOES NOT WANT TO BE MEDICATED FOR DEPRESSION BECAUSE THE MEDS "FEEL LIKE THEY ARE CONTROLLING HER." PT VERY OPEN TO COUNSELING, AND HAS SCHEDULED AN APPT WITH [facility] BUT SOONEST OPENING WAS IN MARCH. JUNIOR SALES ASSISTANT REPORTS TO RN THAT SHE IS GOING TO CALL [facility] TO SEE IF SHE CAN GET THE PATIENT IN SOONER FOR COUNSELING.
--- NOTE | 2025-01-24 13:49 | NUR ---
report from anatoly fritz rn. assumed care.
--- NOTE | 2025-01-24 14:49 | NUR ---
pt up to bathroom, scant bleeding on pad, weighed and it was 24 grams total on the orange pad. which is less than the dry pad. pt moving to bathroom well. has visitors coming and requests vitals and meds to be done now than later.
--- NOTE | 2025-01-24 15:33 | NUR ---
CASE MANAGEMENT AT TO NOTIFY PATIENT OF MENTAL HEALTH APPT SCHEDULED FOR January AT 11:30 AM WITH [facility].
[2025-01-25 06:05] VITALS: BP 121/72
--- NOTE | 2025-01-25 08:08 | NUR ---
dr shelton in room to assess pt and clear for dc. aware of mental health issues and feeling overwhelmed since after and not wanting to be back on sertraline. pt did consent for myself for a core referral to be sent as well as case management saw her yesterday to get her mental health appt for january 31 with [facility]. mother states she feels stuck with boyfriend that she wants to "kick in the face" but won't actually act on it because she knows she shouldnt because she has very little help with him and hes always on his phone. mother denies suicidal ideation or other thoughts to harm others. cat aware of mental health issues and states to patient to call if having questions or concerns arise sooner prior to the appt.
[2025-01-25 08:24] VITALS: BP 122/66
[2025-01-25] MEDS ORDERED: OXAYDO5 M8 PO (09:59)
[2025-01-25] MEDS ORDERED: IBUP800 PO (09:59)
[2025-01-25] MEDS ORDERED: ACET500 PO (09:59)
[2025-01-25 10:15] VITALS: BP 116/65
--- NOTE | 2025-01-25 11:00 | NUR ---
discharge instructions given to parents. has appt for ppfu on tuesday at 9am with jasson giordano. also has mental health appt on january 31 and will call [facility] to make sure she has appt within 2 weeks. fob stormed off when asked to get patients prescritptions as well as bring the car forward to the hospital. patient clearly irritated with him, however robert mom present at dc and is following parents home to make sure they have everything they need and are settled. pt knows to call [facility] sooner or go to ER if having mental health crisis or problems before counseling appt. pt verbalizes understanding. discharged home with s/o angel and at side.
== END 2025-01-25 11:00 | disposition home or self-care (01) | DRG 784 ==
LOC: BC 05:23
PROVIDERS: Obstetrics & Gynecology; ADMIT Obstetrics & Gynecology
PROC: 10D00Z1 Extraction of Products of Conception, Low, Open Approach (ICD-10-PCS; principal; 2025-01-23 07:30)
PROC: 0UB70ZZ Excision of Bilateral Fallopian Tubes, Open Approach (ICD-10-PCS; 2025-01-23 07:30)
DX: O34.211 Maternal care for low transverse scar from previous cesarean delivery (principal); D62 Acute posthemorrhagic anemia; O72.1 Other immediate postpartum hemorrhage; O99.324 Drug use complicating childbirth; Z30.2 Encounter for sterilization; Z3A.39 39 weeks gestation of pregnancy; Z37.0 Single live birth; O99.02 Anemia complicating childbirth; O99.52 Diseases of the respiratory system complicating childbirth; O99.344 Other mental disorders complicating childbirth; F41.8 Other specified anxiety disorders; J45.50 Severe persistent asthma, uncomplicated; O90.81 Anemia of the puerperium; Z79.899 Other long term (current) drug therapy; Z88.0 Allergy status to penicillin; Z88.1 Allergy status to other antibiotic agents; Z79.51 Long term (current) use of inhaled steroids; F12.90 Cannabis use, unspecified, uncomplicated; O99.62 Diseases of the digestive system complicating childbirth; K21.9 Gastro-esophageal reflux disease without esophagitis; O99.214 Obesity complicating childbirth; O99.334 Smoking (tobacco) complicating childbirth
CPT/HCPCS: 36415; 59025; 85025; 85384; 85610; 85730; 86850; 86900; 86901; 86923; 88302; 94640; 94664; 94760; A9270; J1100; J1885; J2210; J2270; J2371; J2405; J2590; J2916; J7030; J7120

== ENCOUNTER → 2025-02-14 | Outpatient (CLI) | payer OTHER ==
[~2025-02-14] MED LIST changes: +FERSU300 PO; +OXAYDO5 M8 PO
[2025-02-14 16:32] LABS: Bacterial Vaginosis PCR Negative (NEGATIVE); Candida Group, PCR NOT DETECTED (NOT DETECT); Candida glabrata-krusei, PCR NOT DETECTED (NOT DETECT)
[2025-02-14 20:20] LABS: Chlamydia Trachomatis Vaginal NOT DETECTED (NOT DETECT); Neisseria Gonorrhoea Vaginal NOT DETECTED (NOT DETECT)
== END ==
LOC: LAB SHORT 14:16 → LAB 14:16
PROVIDERS: Obstetrics & Gynecology
DX: Z11.3 Encounter for screening for infections with a predominantly sexual mode of transmission (principal); N89.8 Other specified noninflammatory disorders of vagina
CPT/HCPCS: 81515; 87491; 87591

== ENCOUNTER 2025-04-15 13:54 | Inpatient (IN) | payer OTHER ==
[~2025-04-15] VITALS: Ht 162.6 cm; Wt 96.6 kg
[2025-04-15 14:51] LABS: BASOPHILS ABSOLUTE AUTO 0.07 K/mm3 (0.00-0.23); BASOPHILS PERCENT AUTO 1 % (0-2); EOSINOPHILS ABSOLUTE AUTO 1.03 K/mm3 (0.00-0.68); EOSINOPHILS PERCENT AUTO 10 % (0-6); Hematocrit 34.9 % (33.0-51.0); Hemoglobin 11.5 g/dL (11.5-16.0); IMMATURE GRAN ABSOLUTE AUTO 0.03 K/mm3 (0.00-0.10); IMMATURE GRAN PERCENT AUTO 0 % (0-1); LYMPHOCYTES ABSOLUTE AUTO 2.90 K/mm3 (0.84-5.20); LYMPHOCYTES PERCENT AUTO 29 % (21-46); MONOCYTES ABSOLUTE AUTO 0.69 K/mm3 (0.16-1.47); MONOCYTES PERCENT AUTO 7 % (4-13); Mean Corpuscular HGB Conc 33.0 g/dL (31.5-36.5); Mean Corpuscular Volume 81 fL (80-100); NEUTROPHILS ABSOLUTE AUTO 5.40 K/mm3 (1.96-9.15); NEUTROPHILS PERCENT AUTO 53 % (41-73); NRBC ABSOLUTE 0.00 K/mm3 (0.00-0.02); NRBC Auto 0.0 /100 WBC (0.0-0.2); Platelet Count 341 K/mm3 (150-400); RDW Coefficient Variation 15.5 % (11.7-14.2); RDW Standard Deviation 45.4 fL (35.1-46.3)
[2025-04-15 15:08] LABS: Influenza A, PCR NEGATIVE (NEGATIVE); Influenza B, PCR NEGATIVE (NEGATIVE); Resp Syncytial Virus, PCR NEGATIVE (NEGATIVE); SARS-Cov-2 (COVID-19) PCR, MMC NEGATIVE (NEGATIVE)
[2025-04-15 15:27] LABS: Alanine Aminotransfer (ALT/SGP 21.0 U/L (12-78); Albumin, Blood 3.8 g/dL (3.4-5.0); Albumin/Globulin Ratio 1.0 (0.8-1.8); Anion Gap 9.0 mmol/L (3-11); Aspartate Aminotrans (AST/SGOT 18.0 U/L (12-37); Bilirubin, Total 0.3 mg/dL (0.1-1.0); Blood Urea Nitrogen 15.0 mg/dL (8-24); CO2, Blood 26.0 mmol/L (21-32); Calcium, Blood 9.1 mg/dL (8.5-10.1); Chloride, Blood 106.0 mmol/L (98-108); Creatinine, Blood 0.56 mg/dL (0.40-1.00); Globulin, Blood 3.9 g/dL (2.2-4.0); Glucose, Blood 90.0 mg/dL (70-99); Potassium, Blood 3.7 mmol/L (3.5-5.5); Sodium, Blood 137.0 mmol/L (136-145); Total Protein, Blood 7.7 g/dL (6.4-8.2)
[2025-04-15] MEDS ORDERED: Albuterol 2.5 MG/3 ML VIAL INH SCH ×3 (17:20→19:15)
[2025-04-15] MEDS ORDERED: Ondansetron HCl 2 MG / ML 2ML Vial IV PRN (20:00)
[2025-04-15] MEDS ORDERED: NS 1,000 ML IV SCH (20:00)
[2025-04-15] MEDS ORDERED: Albuterol 2.5 MG/3 ML VIAL INH PRN (20:00)
[2025-04-15] MEDS ORDERED: Ipratropium/Albuterol SulF 2.5-0.5MG/3 ML Amp INH SCH (20:00)
[2025-04-15] MEDS ORDERED: Magnesium Sulf 2 GM/Water 50ML 50 ML IV STA (20:21)
[2025-04-15] MEDS ORDERED: DESV50 PO (20:26)
[2025-04-15] MEDS ORDERED: HYDPAM50 PO (20:27)
[2025-04-15 22:53] VITALS: BP 140/77
[2025-04-15] MEDS ORDERED: WIXELA 500-501 EAC1 INH (23:00)
[2025-04-16 00:44] LABS: pH Blood Venous 7.45 (7.34-7.37)
[2025-04-16 00:58] LABS: Hematocrit 33.9 % (33.0-51.0); Hemoglobin 11.1 g/dL (11.5-16.0); Mean Corpuscular HGB Conc 32.7 g/dL (31.5-36.5); Mean Corpuscular Volume 83 fL (80-100); NRBC ABSOLUTE 0.00 K/mm3 (0.00-0.02); NRBC Auto 0.0 /100 WBC (0.0-0.2); Platelet Count 301 K/mm3 (150-400); RDW Coefficient Variation 15.4 % (11.7-14.2); RDW Standard Deviation 46.4 fL (35.1-46.3)
[2025-04-16 01:22] LABS: Anion Gap 11.0 mmol/L (3-11); Blood Urea Nitrogen 12.0 mg/dL (8-24); CO2, Blood 24.0 mmol/L (21-32); Calcium, Blood 8.5 mg/dL (8.5-10.1); Chloride, Blood 105.0 mmol/L (98-108); Creatinine, Blood 0.45 mg/dL (0.40-1.00); Glucose, Blood 208.0 mg/dL (70-99); Potassium, Blood 3.7 mmol/L (3.5-5.5); Sodium, Blood 136.0 mmol/L (136-145)
[2025-04-16 03:59] VITALS: BP 131/78
[2025-04-16 07:08] LABS: Influenza A/2009-H1 Not Detected (NOT DETECT); SARS-Cov-2 (COVID-19), BioFire Not Detected (NOT DETECT)
--- NOTE | 2025-04-16 07:19 | NUR ---
SHIFT SUMMARY: ASSUMED CARE OF PT AT 2245. PT A&OX4 CALM AND COOPERTIVE. VSS ON RA. EXPIRATORY/INSPIRATORY WHEEZING HEARD IN ALL LOBES. RECEIVING IV STEROIDS. INDEPENDENT IN ROOM. REGULAR DIET. BED IS LOW AND LOCKED. CALL LIGHT WITHING REACH. CONTINUE WITH CURRENT PLAN OF CARE.
[2025-04-16 07:31] VITALS: BP 134/79
[2025-04-16] MEDS ORDERED: Enoxaparin 40 MG/0.4 ML SYR SC SCH (09:00)
[2025-04-16 12:25] VITALS: BP 136/87
[2025-04-16] MEDS ORDERED: IPRAT-ALBUT 0.5-3 ML INH (15:24)
[2025-04-16] MEDS ORDERED: Ventolin5 MG/1 ML INH (15:24)
[2025-04-16] MEDS ORDERED: ACET325 PO (15:25)
[2025-04-16] MEDS ORDERED: BENZ100A PO (15:26)
[2025-04-16] MEDS ORDERED: Deltasone 10 mg10 MG (15:28)
--- NOTE | 2025-04-16 16:48 | NUR ---
SHIFT SUMMARY/ DISCHARGE PATIENT AOX4 ABLE TO MAKE NEEDS KNOWN DENIES CP OR SOB. INDEPENDENT IN THE ROOM ABLE TO TOLERATE MEALS. VITALS ARE STABLE ON RA. DISCHARGE INSTRUCTIONS EXPLAINED AND UNDERSTANDS.
== END 2025-04-16 16:09 | disposition home or self-care (01) | DRG 203 ==
LOC: ER 13:54 → PCU 19:55
PROVIDERS: Nurse Practitioner Acute Care; Physician Assistant; ADMIT Student in an Organized Health Care Education/Training Program
DX: J45.901 Unspecified asthma with (acute) exacerbation (principal); J06.9 Acute upper respiratory infection, unspecified; F31.9 Bipolar disorder, unspecified; E66.01 Morbid (severe) obesity due to excess calories; D50.9 Iron deficiency anemia, unspecified; Z68.34 Body mass index [BMI] 34.0-34.9, adult; B97.10 Unspecified enterovirus as the cause of diseases classified elsewhere; B97.89 Other viral agents as the cause of diseases classified elsewhere; F41.9 Anxiety disorder, unspecified; E03.9 Hypothyroidism, unspecified; Z88.0 Allergy status to penicillin; Z88.8 Allergy status to other drugs, medicaments and biological substances
CPT/HCPCS: 0202U; 36415; 71046; 80048; 80053; 82803; 84703; 85025; 85027; 87637; 94640; 94762; 96374; 99285-25; A9270; J2919; J3475; J7030